=== PATIENT | male | born 1935 | race Caucasian/White ===

== ENCOUNTER 2019-09-05 15:10 | Inpatient (IN) | payer MEDICARE ==
[2019-09-05 16:14] VITALS: BP 157/95
[2019-09-05] MEDS ORDERED: Maalox 30 mL Cup PO PRN (16:15)
[2019-09-05] MEDS ORDERED: Magnesium Hydroxide (MOM) 30 mL UDC PO PRN (16:15)
--- NOTE | 2019-09-06 01:55 | Psychiatric Evaluation ---
DATE OF SERVICE: 09/05/2019 IDENTIFYING DATA: The patient is an 84-year-old male, resident of ____. Information obtained by directly interviewing the patient as well as reviewing the admission papers and they are reliable. JUSTIFICATION OF HOSPITALIZATION: The patient is admitted here on a voluntary basis in view of his acute agitation and psychosis. CHIEF COMPLAINT: "I could not remember anything. I am in pain and needs some pain medication right away before I say anything." HISTORY OF PRESENT ILLNESS: This is the first psychiatric hospitalization to [facility] for this patient who is reported to have been getting easily agitated and has been getting easily paranoid. The patient has been referred over here by Dr. Coates and Dr. Christensen for stabilization. Review of the chart indicates that the patient has been on Risperdal 1 mg twice a day. During the evaluation, the patient is getting easily irritable and angry and is stating that he is in too much of pain. He does not need to talk to me. The patient has paranoid delusions, but denies any command hallucinations. The patient's sleep is noted to be poor. Appetite is also noted to be very poor. PAST PSYCHIATRIC HISTORY: Details are not known. MEDICAL HISTORY: Physical examination is requested by Dr. Coates. SUBSTANCE ABUSE HISTORY: None. PHYSICAL OR SEXUAL ABUSE HISTORY: None. LEGAL PROBLEMS: None at this time. MENTAL STATUS EXAMINATION: The patient is an 84-year-old, looking his stated age, thin built pacing on the unit. The patient has been having difficult time to cope with the stress. Insight and judgment are noted to be still impaired. Impulse control is noted to be limited. Coping skills are noted to be limited. The patient has been having difficult time to cope with the stress. ASSESSMENT: The patient's attention span and concentration are noted to be poor. Short and long-term are noted to be impaired. The patient is not presenting with any suicidal ideation, but the patient is getting easily agitated and aggressive. DIAGNOSES: AXIS I: Psychosis, not otherwise specified. AXIS 1B: Dementia and behavioral change, secondary trait. AXIS II: None. AXIS III: As per Dr. Coates. IMMEDIATE TREATMENT PLAN: The patient is going to be continued on the Risperdal and followed up. ESTIMATED LENGTH OF STAY: 5-7 days. DISCHARGE CRITERIA: When he no longer a threat to self or others and be able to cope up with the stress. [facility]# [id number]
[2019-09-06] MEDS: Multivitamin Tab PO SCH (08:58)
--- NOTE | 2019-09-06 09:10 | History & Physical ---
ADMIT DATE: 09/05/2019 CHIEF COMPLAINT: Agitation. HISTORY OF PRESENT ILLNESS: This is an 84-year-old male who was originally admitted from [facility] Emergency Room. Once medically cleared due to increase in agitation from the [facility], the patient was transferred to [facility] Unit for further mental health management. REVIEW OF SYSTEMS: GENERAL: This is an 84-year-old male. No fever, no weakness. HEAD: No headache. No dizziness. EYES: No eye pain, no blurring vision. NECK: No neck pain, no nuchal rigidity. CHEST: No chest pain or palpitation. PULMONARY: No coughing. No shortness of breath. GASTROINTESTINAL: No abdominal pain, no constipation, no diarrhea. MUSCULOSKELETAL: No joint pain. No muscle pain. SOCIAL HISTORY: The patient lives in a [facility] prior to hospitalization. PSYCHIATRIC HISTORY: Includes dementia. PAST SURGICAL HISTORY: Unremarkable. FAMILY HISTORY: Unremarkable. PAST MEDICAL HISTORY: Includes osteoarthritis. PHYSICAL EXAMINATION: VITAL SIGNS: Temperature 98.5, heart rate 79, blood pressure 119/59, respirations 20, 97% on room air. GENERAL: This is an 84-year-old male that appears as stated in no acute distress. HEENT: Head is atraumatic and normocephalic. Eyes: Bilateral conjunctivae are clear. Bilateral pupils equal, round, reactive. NECK: Supple. No JVD. CARDIOVASCULAR: S1 and S2, without murmur. PULMONARY: Clear to auscultation. GASTROINTESTINAL: Soft and nontender without guarding. Positive bowel sounds. MUSCULOSKELETAL: No clubbing. No cyanosis noted. ASSESSMENT: 1. Dementia. 2. Psychosis. 3. Osteoarthritis. PLAN: We will admit the patient to Psychiatric Unit. We will follow up with the psychiatrist to monitor the patient's condition and behavior. We will put the patient on fall precaution. We will do medication reconciliation accordingly. Treatment plans were discussed with the patient's nurse. Treatment plans were discussed with Dr. Coates. JOB# [id number]
--- NOTE | 2019-09-07 02:16 | Progress Notes ---
DATE: 09/06/2019 PSYCHIATRIC PROGRESS NOTE SUBJECTIVE: Staff was spoken to. The patient is interviewed. Mood is noted to be depressed. Affect is constricted. The patient is acutely confused at this time. The patient is not able to contract for safety. The patient is very intrusive and trying to get out of the bed. The patient is at very high fall risk. The patient needs to be closely monitored. The patient's medication has been reviewed and the Risperdal dose has been decreased to 0.5 mg twice a day and the patient is going to be closely monitored. Staff are informed about the fall risk. ASSESSMENT: The patient is paranoid at the same time and demented. PLAN: To continue the patient with the supportive therapy. I encouraged the patient to verbalize the concerns rather than to act out. JOB# [id number]
[2019-09-07] MEDS: Multivitamin Tab PO SCH (09:58)
--- NOTE | 2019-09-07 16:28 | Internal Medicine Prog Note ---
Internal Medicine Subjective - Subjective Patient is:: awake, verbal, in bed, talking Per staff patient has:: no adverse event, no episodes of fall Internal Medicine Objective - Physical Exam Vitals and I&O: Vital Signs Temp 98.8 F 09/07/19 15:38 Pulse 64 09/07/19 15:38 Resp 17 09/07/19 15:38 BP 126/65 09/07/19 15:38 Pulse Ox 98 09/07/19 15:38 Intake & Output 09/06/19 09/07/19 09/07/19 19:59 06:59 18:59 Intake Total 120 Balance 120 Intake: Oral 120 Other: # Voids 3 # Bowel Movements Active Medications: Current Medications Acetaminophen (Tylenol) 650 mg PO Q4HR PRN PRN Reason: Mild Pain / Temp above 100 Stop: 11/04/19 16:14 Al Hydrox/Mg Hydrox/Simethicone (Maalox) 30 ml PO Q4HR PRN PRN Reason: GI DISTRESS Stop: 11/04/19 16:14 Docusate Sodium (Colace) 100 mg PO BID [facility] Stop: 11/05/19 08:59 Last Admin: 09/07/19 09:58 Dose: 100 mg Hydroxyzine HCl (Atarax) 10 mg PO HS [facility]; Protocol Stop: 11/04/19 20:59 Last Admin: 09/06/19 21:11 Dose: 10 mg Lorazepam (Ativan) 0.5 mg PO Q4HR PRN; Protocol PRN Reason: Agitation Stop: 10/05/19 16:14 Magnesium Hydroxide (Milk Of Magnesia) 30 ml PO HS PRN PRN Reason: Constipation Memantine (Namenda) 10 mg PO BID [facility] Stop: 11/05/19 08:59 Last Admin: 09/07/19 09:58 Dose: 10 mg Multivitamins/Vitamin C (Theragran) 1 tab PO DAILY [facility] Stop: 11/05/19 08:59 Last Admin: 09/07/19 09:58 Dose: 1 tab Risperidone (Risperdal) 0.5 mg PO BID [facility]; Protocol Stop: 11/05/19 16:59 Last Admin: 09/07/19 09:58 Dose: 0.5 mg Zolpidem Tartrate (Ambien) 5 mg PO HS PRN PRN Reason: Insomnia Stop: 11/04/19 16:14 Last Admin: 09/06/19 21:12 Dose: 5 mg General: weak, demented, disheveled HEENT: NC/AT, PERRLA Neck: Supple, No JVD Lungs: other (no acute respiratory distress) Cardiovascular: RRR Abdomen: soft, non-tender, non-distended Neurological: unable to follow command, other (paranoid) Internal Medicine Assmt/Plan - Assessment Assessment: Dementia Psychosis OA Paranoid - Plan Plan: Continue current treatment plan. Monitor Labs. Continue current medications Continue to monitor VS Monitor Diet/Nutritional support. Psych management per Psychiatry. Pain Management. PT/OT prn Safety precaution, Fall precaution, frequent nursing round. Supportive care. Continue collaborating with consulting specialists, case management and nursing team
--- NOTE | 2019-09-07 22:23 | Progress Notes ---
DATE: 09/07/2019 PSYCHIATRIC PROGRESS NOTE SUBJECTIVE: Staff was spoken to. The patient is interviewed. Mood is noted to be depressed. Affect is constricted. The patient's insight and judgment are noted to be still impaired. Impulse control is noted to be poor. The patient has been having difficult time to cope with the stress. The patient is isolative and withdrawn at this time. No side effects to the medications are noted. The patient's Risperdal has been decreased to 0.5 mg twice a day and the patient has been able to tolerate. The patient however has been feeling frustrated and is stating that he is depressed and he gave up everything. ASSESSMENT: The patient is still confused and demented. PLAN: To closely monitor the patient. I encouraged the patient to verbalize the concerns rather than to act out. JOB# [id number]
[2019-09-08] MEDS: Multivitamin Tab PO SCH (09:01)
--- NOTE | 2019-09-08 10:16 | Internal Medicine Prog Note ---
Internal Medicine Subjective - Subjective Service Date: 09/08/19 Patient seen and examined:: with staff Patient is:: awake, verbal, in bed, talking, agitated, confused Patient Complaints of:: other (Hx of OA.) Per staff patient has:: no adverse event, no episodes of fall Internal Medicine Objective - Physical Exam Vitals and I&O: Vital Signs Temp 97.6 F 09/08/19 06:39 Pulse 71 09/08/19 06:39 Resp 18 09/08/19 06:39 BP 104/60 09/08/19 06:39 Pulse Ox 97 09/08/19 06:39 Intake & Output 09/07/19 09/08/19 09/08/19 18:59 06:59 18:59 Intake Total 120 120 Balance 120 120 Intake: Oral 120 120 Other: # Voids 3 3 Active Medications: Current Medications Acetaminophen (Tylenol) 650 mg PO Q4HR PRN PRN Reason: Mild Pain / Temp above 100 Stop: 11/04/19 16:14 Al Hydrox/Mg Hydrox/Simethicone (Maalox) 30 ml PO Q4HR PRN PRN Reason: GI DISTRESS Stop: 11/04/19 16:14 Docusate Sodium (Colace) 100 mg PO BID [facility] Stop: 11/05/19 08:59 Last Admin: 09/08/19 09:00 Dose: 100 mg Hydroxyzine HCl (Atarax) 10 mg PO HS [facility]; Protocol Stop: 11/04/19 20:59 Last Admin: 09/07/19 21:06 Dose: 10 mg Lorazepam (Ativan) 0.5 mg PO Q4HR PRN; Protocol PRN Reason: Agitation Stop: 10/05/19 16:14 Magnesium Hydroxide (Milk Of Magnesia) 30 ml PO HS PRN PRN Reason: Constipation Memantine (Namenda) 10 mg PO BID [facility] Stop: 11/05/19 08:59 Last Admin: 09/08/19 09:01 Dose: 10 mg Multivitamins/Vitamin C (Theragran) 1 tab PO DAILY [facility] Stop: 11/05/19 08:59 Last Admin: 09/08/19 09:01 Dose: 1 tab Risperidone (Risperdal) 0.5 mg PO BID [facility]; Protocol Stop: 11/05/19 16:59 Last Admin: 09/08/19 09:00 Dose: 0.5 mg Zolpidem Tartrate (Ambien) 5 mg PO HS PRN PRN Reason: Insomnia Stop: 11/04/19 16:14 Last Admin: 09/07/19 21:06 Dose: 5 mg Physical Exam: Patient is very agitated and confused, needs monitoring. General: weak, demented, disheveled HEENT: NC/AT, PERRLA Neck: Supple, No JVD Lungs: other (no acute respiratory distress) Cardiovascular: RRR Abdomen: soft, non-tender, non-distended Extremities: pain Neurological: unable to follow command, other (paranoid) Internal Medicine Assmt/Plan - Assessment Assessment: Dementia. Psychosis. Osteoarthritis. - Plan Plan: Continuation of care. Monitor vitals and labs. Continue present meds as directed. Monitor diet/nutritional support. Psyche management per Psych. Pain management. Continue present care management. Nutritional Asmnt/Malnutr-PDOC - Dietary Evaluation Malnutrition Findings (Please click <Entered> for more info): See orders.
--- NOTE | 2019-09-08 23:05 | Progress Notes ---
DATE: 09/08/2019 SUBJECTIVE: Staff was spoken to. The patient is interviewed. Mood is noted to be depressed and the patient is confused. The patient's coping skills are noted to be very poor. The patient has been having difficult time to cope with the stress. No side effects to the medications are noted at this time. The patient is total care. At this time, needs to be redirected. Coping skills are noted to be extremely poor. ASSESSMENT: The patient is still confused and depressed. PLAN: To continue the patient with the supportive therapy and followup. JOB# [id number]
[2019-09-09] MEDS: Multivitamin Tab PO SCH (08:53)
--- NOTE | 2019-09-09 17:03 | Internal Medicine Prog Note ---
Internal Medicine Subjective - Subjective Service Date: 09/09/19 Patient is:: awake, verbal, in bed, talking, agitated, confused Patient Complaints of:: other (Hx of OA.) Per staff patient has:: no adverse event, no episodes of fall Internal Medicine Objective - Physical Exam Vitals and I&O: Vital Signs Temp 98.4 F 09/09/19 14:00 Pulse 67 09/09/19 14:00 Resp 20 09/09/19 14:00 BP 184/77 09/09/19 14:00 Pulse Ox 96 09/09/19 14:00 Intake & Output 09/08/19 09/09/19 09/09/19 18:59 06:59 18:59 Intake Total 850 240 Balance 850 240 Intake: Oral 850 240 Other: # Voids 3 2 # Bowel Movements 0 Active Medications: Current Medications Acetaminophen (Tylenol) 650 mg PO Q4HR PRN PRN Reason: Mild Pain (Scale 1-3) Stop: 11/04/19 16:14 Acetaminophen (Tylenol) 650 mg PO Q4H PRN PRN Reason: TEMP ABOVE 100 Stop: 11/08/19 15:19 Al Hydrox/Mg Hydrox/Simethicone (Maalox) 30 ml PO Q4HR PRN PRN Reason: GI DISTRESS Stop: 11/04/19 16:14 Docusate Sodium (Colace) 100 mg PO BID [facility] Stop: 11/05/19 08:59 Last Admin: 09/09/19 08:53 Dose: 100 mg Hydroxyzine HCl (Atarax) 10 mg PO HS [facility]; Protocol Stop: 11/04/19 20:59 Last Admin: 09/08/19 20:40 Dose: 10 mg Lorazepam (Ativan) 0.5 mg PO Q4HR PRN; Protocol PRN Reason: Agitation Stop: 10/05/19 16:14 Magnesium Hydroxide (Milk Of Magnesia) 30 ml PO HS PRN PRN Reason: Constipation Memantine (Namenda) 10 mg PO BID [facility] Stop: 11/05/19 08:59 Last Admin: 09/09/19 08:53 Dose: 10 mg Multivitamins/Vitamin C (Theragran) 1 tab PO DAILY [facility] Stop: 11/05/19 08:59 Last Admin: 09/09/19 08:53 Dose: 1 tab Risperidone (Risperdal) 0.5 mg PO BID [facility]; Protocol Stop: 11/05/19 16:59 Last Admin: 09/09/19 08:53 Dose: 0.5 mg Zolpidem Tartrate (Ambien) 5 mg PO HS PRN PRN Reason: Insomnia Stop: 11/04/19 16:14 Last Admin: 09/08/19 20:40 Dose: 5 mg General: weak, demented, disheveled HEENT: NC/AT, PERRLA Neck: Supple, No JVD Lungs: other (no acute respiratory distress) Cardiovascular: RRR Abdomen: soft, non-tender, non-distended Extremities: pain Neurological: unable to follow command, other (paranoid) Nutritional Asmnt/Malnutr-PDOC - Dietary Evaluation Malnutrition Findings (Please click <Entered> for more info): Nutritional Asmnt/Malnutrition Start: 09/09/19 13: 09 Text: Status: Complete Freq: Protocol: Document 09/09/19 13:09 CHITO (Rec: 09/09/19 13:12 [email or web address] [id number]) Nutritional Asmnt/Malnutrition Patient General Information Nutritional Screening Moderate Risk Diagnosis Psychosis Pertinent Medical Hx/Surgical Hx Osteoarthritis, Renal Failure (noted with previous facility, not in H&P Report). Subjective Information Pt is a 84-year-old male admitted on 09/05 d/t increased agitation in [facility]. Pt is eating an estimated 80% of meals Per Meal/Nutrition Activity Record . Dietary is currently providing an estimated 1500 kcals and 57 gm Pro, per Pt PO intake this is providing an estimated 1200 kcals and 46gm Pro to meet 71% kcal and 100% Pro needs. Will continue to monitor pt PO intake, nurse to encourage PO intake and provide snacks as appropriate. Will monitor nutrition related labs and reassess needs if necessary once reported. Anthropometrics HT: 58 WT: 135 LB (61.36 kg) BMI: 20.53 (Normal) GI/ Skin Integrity GI: WNL, Soft, Flat, Non- tender BM: 09/07 x1 I/O: 1090/Not Noted Skin: WNL, Intact Wesley: 21 Diet Order: Renal Estimated Energy Needs: (Renal Failure, CBW) 1700-1850kcals (28-30 kcals/kg ) 46-50g Pro (0.75-0.8 g/kg) 2718-4610 ml (28-30 ml/kg) Current Diet Order/ Nutrition Support Renal Pertinent Medications Maalox (PRN), Colace, MOM (PRN ), Theragran Pertinent Labs Labs ordered 09/05, not reported yet. Nutritional Hx/Data Height 5 ft 8 in Height (Calculated Centimeters) 172.7 Current Weight (lbs) 135 lb Weight (Calculated Kilograms) 61.2 Weight (Calculated Grams) 89064.0 [place] Body Weight 154 LB (70 kg) % [place] Body Weight 88 Body Mass Index (BMI) 20.5 Weight Status Approriate GI Symptoms Last BM 09/07 x1 Skin Integrity/Comment: Skin: WNL, Intact Wesley: 21 Current %PO Good (75-100%) Estimated Nutritional Goals BEE in Kcals: Using Current wt Calories/Kcals/Kg 28-30 Kcals Calculated 6701-1684 Protein: Using Current wt Protein g/k.75-0.8 Protein Calculated 46-50 Fluid: ml 1173-6779 ml (28-30 ml/kg) Nutritional Problem 1. Problem Problem Decreased nutrient needs ( protein) Etiology r/t decreased renal function Signs/Symptoms: aeb reported Hx renal failure from pt previous facility. Malnutrition Related to Morbid Obesity Malnutrition related to morbid obesity No Intervention/Recommendation Comments Continue with renal diet as ordered. Expected Outcomes/Goals Expected Outcomes/Goals 1. PO intake to meet 75% of nutritional needs. 2. Monitor PO intake, wt, nutrition related labs, and skin integrity. 3. F/U as low risk in 7-10 days, 09/16-09/19
--- NOTE | 2019-09-09 20:14 | Progress Notes ---
DATE: 09/09/2019 PSYCHIATRIC PROGRESS NOTE SUBJECTIVE: Staff was spoken to. The patient is interviewed. Mood is noted to be depressed. Affect is constricted. The patient is isolative and withdrawn. The patient is confused and has been going into different rooms. The patient needs to be redirected. No side effects to the medications are noted at this time. ASSESSMENT: The patient is still depressed. PLAN: To continue the patient with the supportive therapy and followup. JOB# [id number]
[2019-09-10] MEDS: Multivitamin Tab PO SCH (08:59)
--- NOTE | 2019-09-10 11:41 | Internal Medicine Prog Note ---
Internal Medicine Subjective - Subjective Service Date: 09/10/19 Patient seen and examined:: with staff Patient is:: awake, verbal, in bed, talking, agitated, confused Patient Complaints of:: other (Hx of OA.) Per staff patient has:: no adverse event, no episodes of fall Internal Medicine Objective - Physical Exam Vitals and I&O: Vital Signs Temp 97.0 F 09/10/19 06:03 Pulse 76 09/10/19 06:03 Resp 18 09/10/19 06:03 BP 161/77 09/10/19 06:03 Pulse Ox 98 09/10/19 06:03 Intake & Output 09/09/19 09/10/19 09/10/19 18:59 06:59 18:59 Intake Total 700 180 Balance 700 180 Intake: Oral 700 180 Other: # Voids 3 1 # Bowel Movements 0 0 Active Medications: Current Medications Acetaminophen (Tylenol) 650 mg PO Q4HR PRN PRN Reason: Mild Pain (Scale 1-3) Stop: 11/04/19 16:14 Acetaminophen (Tylenol) 650 mg PO Q4H PRN PRN Reason: TEMP ABOVE 100 Stop: 11/08/19 15:19 Al Hydrox/Mg Hydrox/Simethicone (Maalox) 30 ml PO Q4HR PRN PRN Reason: GI DISTRESS Stop: 11/04/19 16:14 Docusate Sodium (Colace) 100 mg PO BID [facility] Stop: 11/05/19 08:59 Last Admin: 09/10/19 08:59 Dose: 100 mg Hydroxyzine HCl (Atarax) 10 mg PO HS [facility]; Protocol Stop: 11/04/19 20:59 Last Admin: 09/09/19 20:31 Dose: 10 mg Lorazepam (Ativan) 0.5 mg PO Q4HR PRN; Protocol PRN Reason: Agitation Stop: 10/05/19 16:14 Last Admin: 09/10/19 08:59 Dose: 0.5 mg Magnesium Hydroxide (Milk Of Magnesia) 30 ml PO HS PRN PRN Reason: Constipation Memantine (Namenda) 10 mg PO BID [facility] Stop: 11/05/19 08:59 Last Admin: 09/10/19 08:59 Dose: 10 mg Multivitamins/Vitamin C (Theragran) 1 tab PO DAILY [facility] Stop: 11/05/19 08:59 Last Admin: 09/10/19 08:59 Dose: 1 tab Risperidone (Risperdal) 0.5 mg PO BID [facility]; Protocol Stop: 11/05/19 16:59 Last Admin: 09/10/19 08:59 Dose: 0.5 mg Zolpidem Tartrate (Ambien) 5 mg PO HS PRN PRN Reason: Insomnia Stop: 11/04/19 16:14 Last Admin: 09/09/19 20:31 Dose: 5 mg Physical Exam: Patient is depressed mood, remains isolated and withdrawn. General: weak, demented, disheveled HEENT: NC/AT, PERRLA Neck: Supple, No JVD Lungs: other (no acute respiratory distress) Cardiovascular: RRR Abdomen: soft, non-tender, non-distended Extremities: pain Neurological: no change, unable to follow command, other (paranoid) Internal Medicine Assmt/Plan - Assessment Assessment: Dementia. Psychosis. Osteoarthritis. - Plan Plan: Continuation of care. Monitor vitals and labs. Continue present meds as directed. Monitor diet/nutritional support. Psyche management per Psych. Pain management. Continue present care management. Nutritional Asmnt/Malnutr-PDOC - Dietary Evaluation Malnutrition Findings (Please click <Entered> for more info): Nutritional Asmnt/Malnutrition Start: 09/09/19 13: 09 Text: Status: Complete Freq: Protocol: Document 09/09/19 13:09 CHITO (Rec: 09/09/19 13:12 CHITO [id number]) Nutritional Asmnt/Malnutrition Patient General Information Nutritional Screening Moderate Risk Diagnosis Psychosis Pertinent Medical Hx/Surgical Hx Osteoarthritis, Renal Failure (noted with previous facility, not in H&P Report). Subjective Information Pt is a 84-year-old male admitted on 09/05 d/t increased agitation in [facility] care [facility]. Pt is eating an estimated 80% of meals Per Meal/Nutrition Activity Record . Dietary is currently providing an estimated 1500 kcals and 57 gm Pro, per Pt PO intake this is providing an estimated 1200 kcals and 46gm Pro to meet 71% kcal and 100% Pro needs. Will continue to monitor pt PO intake, nurse to encourage PO intake and provide snacks as appropriate. Will monitor nutrition related labs and reassess needs if necessary once reported. Anthropometrics HT: 58 WT: 135 LB (61.36 kg) BMI: 20.53 (Normal) GI/ Skin Integrity GI: WNL, Soft, Flat, Non- tender BM: 09/07 x1 I/O: 1090/Not Noted Skin: WNL, Intact Wesley: 21 Diet Order: Renal Estimated Energy Needs: (Renal Failure, CBW) 1700-1850kcals (28-30 kcals/kg ) 46-50g Pro (0.75-0.8 g/kg) 9806-7390 ml (28-30 ml/kg) Current Diet Order/ Nutrition Support Renal Pertinent Medications Maalox (PRN), Colace, MOM (PRN ), Theragran Pertinent Labs Labs ordered 09/05, not reported yet. Nutritional Hx/Data Height 1.73 m Height (Calculated Centimeters) 172.7 Current Weight (lbs) 61.235 kg Weight (Calculated Kilograms) 61.2 Weight (Calculated Grams) 08993.0 [place] Body Weight 154 LB (70 kg) % [place] Body Weight 88 Body Mass Index (BMI) 20.5 Weight Status Approriate GI Symptoms Last BM 09/07 x1 Skin Integrity/Comment: Skin: WNL, Intact Wesley: 21 Current %PO Good (75-100%) Estimated Nutritional Goals BEE in Kcals: Using Current wt Calories/Kcals/Kg 28-30 Kcals Calculated 9159-9210 Protein: Using Current wt Protein g/k.75-0.8 Protein Calculated 46-50 Fluid: ml 2425-6703 ml (28-30 ml/kg) Nutritional Problem 1. Problem Problem Decreased nutrient needs ( protein) Etiology r/t decreased renal function Signs/Symptoms: aeb reported Hx renal failure from pt previous facility. Malnutrition Related to Morbid Obesity Malnutrition related to morbid obesity No Intervention/Recommendation Comments Continue with renal diet as ordered. Expected Outcomes/Goals Expected Outcomes/Goals 1. PO intake to meet 75% of nutritional needs. 2. Monitor PO intake, wt, nutrition related labs, and skin integrity. 3. F/U as low risk in 7-10 days, 09/16-09/19
--- NOTE | 2019-09-10 23:10 | Progress Notes ---
DATE: 09/10/2019 SUBJECTIVE: Staff was spoken to. The patient is interviewed. Mood is noted to be depressed. The patient is very isolative, withdrawn and is noted to be very drowsy and hence it is decided to hold off the psych medications and then get a comprehensive metabolic panel. The patient is going to be closely monitored at this time. ASSESSMENT: The patient is still confused and is very drowsy. PLAN: To continue the patient with the supportive therapy and hold all psychotropic medications. JOB# [id number]
== END 2019-09-10 20:30 | disposition short-term general hospital (02) | DRG 885 ==
LOC: GERO 15:10
PROVIDERS: ADMIT Psychiatry & Neurology Psychiatry; ATTEND Psychiatry & Neurology Psychiatry
DX: F29 Unspecified psychosis not due to a substance or known physiological condition (principal); F03.91 Unspecified dementia, unspecified severity, with behavioral disturbance; M19.90 Unspecified osteoarthritis, unspecified site
CPT/HCPCS: 83036-90

== ENCOUNTER 2019-09-16 17:48 | Inpatient (IN) | payer MEDICARE ==
[2019-09-16 22:45] VITALS: BP 149/58
[2019-09-16] MEDS ORDERED: Maalox 30 mL Cup PO PRN (22:46)
[2019-09-16] MEDS ORDERED: Magnesium Hydroxide (MOM) 30 mL UDC PO PRN (22:59)
--- NOTE | 2019-09-17 07:43 | Psychiatric Evaluation ---
DATE OF SERVICE: 09/16/2019 PSYCHIATRIC INTIAL EVALUATION AND MENTAL STATUS EXAM AGE: 84. SEX: Male. PHYSICIAN: Dr. Gillespie. CHIEF COMPLAINT: 5150 hold for grave disability. HISTORY OF PRESENT ILLNESS: The patient is an 84-year-old male who was living in a [facility] living in [place]. The patient was transferred to [facility] because of confusion and because of forgetfulness and increased aggressive behavior was striking out behavior and aggression towards staff. The patient also has been having short temper and severe mood swings. Also, was not cooperative with the staff. In [facility], patient continued to exhibit same behavior and patient was given Seroquel in a dose adjusted to 25 mg in the morning and 50 mg at bedtime. The patient was transferred to [facility]. PAST PSYCHIATRIC HISTORY: The patient has history of dementia and psychosis. PAST MEDICAL HISTORY: The patient has moderate malnutrition as well as degenerative joint disease, and acute renal failure and osteoarthritis. SOCIAL HISTORY: The patient was living in [facility] in [place]. No known alcohol or drug use. ALLERGIES: No known allergies. MENTAL STATUS EXAMINATION: The patient appears his stated age. Sedated. Anxious. Thought processes are with poverty of speech. The patient did not answer questions regarding hallucinations or delusions or regarding suicide or homicide. The patient is alert, but slightly sedated and seems to be disoriented to time, place, person and situation. Impaired immediate, recent and remote memories. Poor insight and judgment. ASSESSMENT: PRIMARY DIAGNOSIS: Unspecified psychosis. SECONDARY DIAGNOSIS: Dementia, moderate to severe, with psychotic features and behavioral disturbances. MEDICAL DIAGNOSES: Degenerative joint disease. Acute renal failure. Osteoarthritis. Moderate malnutrition. TREATMENT PLAN: The patient currently seems to be sedated with the increased dose of the Seroquel. We will decrease Seroquel to 12.5 mg in the morning and 37.5 mg at bedtime. Also, we will monitor behavior closely. ESTIMATED LENGTH OF STAY: 5-7 days. PATIENT'S STRENGTHS AND WEAKNESSES: The patient's strength is that seems to be in relatively fair health with his age. Weaknesses is his poor impulse control and ineffective coping. AFTER DISCHARGE PLAN: The patient might need rehabilitation and outpatient treatment and followup, will continue as an outpatient. JOB# [id number]
[2019-09-17] MEDS: Multivitamin w/ Minerals Tab PO SCH (10:00)
--- NOTE | 2019-09-17 11:24 | History and Physical ---
History of Present Illness - HPI Chief Complaint: 84 y/o male patient was transferred from [facility] for 5150 Hold for Grave disability. HPI: 84 y/o male patient was admitted at [facility] for 5150 Hold for Grave disability. Patient has history of Psychosis, Dementia, Degenerative joint disease, Acute renal failure and Osteoarthritis. Patient was transferred from [facility] where she was recently admitted due to Forgetfulness, Confusion and Increased aggressive behavior, striking out behavior and aggression towards others. Patient's behavior worsened and was transferred here for further care. Patient had a Psych consult and a complete workup was done. Patient was put on 5150 Hold. Patient was diagnosed with Psychosis, Dementia moderate to severe, History of Degenerative joint disease, History of Acute renal failure and History of Osteoarthritis. I will follow, treat and monitor patient. Patient will continue current treatment plan as ordered. Vital Signs: Last Vital Signs Temp 98.1 F 09/16/19 22:38 Pulse 76 09/16/19 22:38 Resp 20 09/16/19 22:38 BP 149/58 09/16/19 22:45 Pulse Ox 99 09/16/19 22:38 Past Medical History Cardiovascular: Report: No Pertinent Hx Pulmonary: Report: No Pertinent Hx W[employer]: Report: Dementia GI: Report: No Pertinent Hx Psych: Report: Anxiety Musculoskeletal: Report: No Pertinent Hx Rheumatologic: Report: No pertinent Hx Infectious Disease: Report: No Pertinent Hx Renal/: Report: No Pertinent Hx Endocrine: Report: No Pertinent Hx Dermatology: Report: No Pertinent Hx - Past Surgical History Past Surgical History: No pertinent Hx Family Medical History - Family Member Mother History Unknown: Yes Social History Smoke: No Alcohol: None Drugs: None Lives: Care Home Domestic Violence: Negative Health Maintenance Health Maintenance: Other (Please see chart.) - Medications Home Medications: Home Medication Medication Instructions Recorded Type Melatonin 5 mg PO HS 09/05/19 History Memantine [Namenda] 10 mg PO BID 09/05/19 History hydrOXYzine [Atarax*] 10 mg PO HS 09/05/19 History risperiDONE [Risperdal] 1 mg PO BID 09/05/19 History Acetaminophen [Tylenol] 650 mg PO Q4H PRN tab 09/10/19 Rx Al Hyd/Mg Hyd/Simethicone [Maalox] 30 ml PO Q4HR PRN udc 09/10/19 Rx Docusate Sodium [Colace] 100 mg PO BID cap 09/10/19 Rx Other Medications: Please see medication reconciliation sheet. - Allergies Allergies/Adverse Reactions: Allergies Allergy/AdvReac Type Severity Reaction Status Date / Time No Known Allergies Allergy Verified 09/05/19 16:00 Review of Systems - Review of Systems Review of Systems: 84 y/o male patient remains very aggressive and having mood swings, needs close monitoring. Constitutional: Report: No Significant Eyes: Report: No Significant ENT: Report: No Significant Respiratory: Report: No Significant Cardiovascular: Report: No Significant Gastrointestinal: Report: No Significant Genitourinary: Report: No Significant Musculoskeletal: Report: No Significant Skin: Report: No Significant Neurological: Report: Confusion Physical Exam - Physical Exam HEENT: Report: Ears Nose Throat within normal limits Neck: Report: Within normal limits Cardiovascular Systems: Report: +s1/s2 noted, Regular, Rate and Rhythm Respiratory: Report: Breath Sounds are within normal limits Abdomen: Report: Non-tender to palpation Back: Report: Inspection of back is within normal limits. Extremities: Report: Non-tender to palpation. Skin: Report: Color of skin is within normal limits Neuro/Psych: Report: Disoriented to name time or place, Other (Irritable mood.) - Lab Results All Lab Results last 24 hours: See orders. - Assessment Assessment: 5150 Hold. Psychosis. Anxiety. Dementia moderate to severe. History of Degenerative joint disease. History of Acute renal failure. History of Osteoarthritis. - Plan Plan: Continuation of care. Monitor vitals and labs. Monitor diet/nutritional support. Continue present meds as directed. Supportive care. Pain management. Psych management as per Psych. Continue current treatment plan as ordered.
--- NOTE | 2019-09-18 08:37 | Progress Notes ---
DATE: 09/18/2019 PSYCHIATRIC PROGRESS NOTE SUBJECTIVE: Chart was reviewed and the patient interviewed. Also discussed the patient's condition with the staff and reviewed records and labs. The patient is still extremely agitated and is still in irritable and angry mood. The patient also is still restless and is easily agitated and wants to be left alone. The patient seems to be less sedated. Also, the patient wants to be left alone. No major behavioral problems. Also, the patient has no side effects since I decreased his Seroquel, but he is still confused. ASSESSMENT: The patient is still agitated and needs close monitoring. TREATMENT PLAN: We will continue to monitor his behavior and his condition closely. Also, we will continue Seroquel since I decreased it yesterday at the same dose. Also, continue to monitor his behavior and his condition closely. JOB# [id number]
[2019-09-18] MEDS: Multivitamin w/ Minerals Tab PO SCH (09:35)
--- NOTE | 2019-09-18 17:08 | Internal Medicine Prog Note ---
Internal Medicine Subjective - Subjective Service Date: 09/18/19 Patient seen and examined:: with staff Patient is:: awake Per staff patient has:: tolerating meds Internal Medicine Objective - Physical Exam Vitals and I&O: Vital Signs Temp 97.6 F 09/18/19 14:00 Pulse 71 09/18/19 14:00 Resp 20 09/18/19 14:00 BP 149/89 09/18/19 14:00 Pulse Ox 97 09/18/19 14:00 Intake & Output 09/17/19 09/18/19 09/18/19 18:59 06:59 18:59 Intake Total 700 120 Balance 700 120 Intake: Oral 700 120 Other: # Voids 3 1 # Bowel Movements 1 1 Active Medications: Current Medications Acetaminophen (Tylenol) 650 mg PO Q4H PRN PRN Reason: Mild Pain / Temp above 100 Stop: 11/15/19 22:45 Al Hydrox/Mg Hydrox/Simethicone (Maalox) 30 ml PO Q4H PRN PRN Reason: GI DISTRESS Stop: 11/15/19 22:45 Docusate Sodium (Colace) 100 mg PO BID [facility] Stop: 11/16/19 08:59 Last Admin: 09/18/19 16:35 Dose: 100 mg Lorazepam (Ativan) 0.5 mg PO Q4H PRN; Protocol PRN Reason: Anxiety Stop: 11/15/19 22:14 Magnesium Hydroxide (Milk Of Magnesia) 30 ml PO HS PRN PRN Reason: Constipation Stop: 11/15/19 22:58 Memantine (Namenda) 10 mg PO BID [facility] Stop: 11/16/19 08:59 Last Admin: 09/18/19 16:35 Dose: 10 mg Quetiapine Fumarate (Seroquel) 12.5 mg PO DAILY [facility]; Protocol Stop: 11/16/19 08:59 Last Admin: 09/18/19 09:35 Dose: 12.5 mg Quetiapine Fumarate (Seroquel) 37.5 mg PO HS [facility]; Protocol Stop: 11/16/19 20:59 Last Admin: 09/17/19 20:29 Dose: 37.5 mg Zolpidem Tartrate (Ambien) 5 mg PO HS PRN PRN Reason: Insomnia Stop: 11/15/19 22:45 General: alert HEENT: NC/AT, PERRLA Neck: Supple Lungs: CTAB Cardiovascular: Normal S1, Normal S2, without murmur Abdomen: soft, non-tender, non-distended, positive bowel sound Neurological: alert Internal Medicine Assmt/Plan - Assessment Assessment: 5150 Hold. Psychosis. Anxiety. Dementia moderate to severe. History of Degenerative joint disease. History of Acute renal failure. History of Osteoarthritis. - Plan Plan: Continuation of care. Monitor vitals and labs. Monitor diet/nutritional support. Continue present meds as directed. Supportive care. Pain management. Psych management as per Psych. Continue current treatment plan as ordered.
[2019-09-19] MEDS: Multivitamin w/ Minerals Tab PO SCH (09:04)
--- NOTE | 2019-09-19 15:37 | Internal Medicine Prog Note ---
Internal Medicine Subjective - Subjective Service Date: 09/19/19 Patient seen and examined:: with staff Patient is:: awake, verbal, agitated, confused Patient Complaints of:: other (Dementia.) Per staff patient has:: no adverse event, no episodes of fall, tolerating meds Internal Medicine Objective - Physical Exam Vitals and I&O: Vital Signs Temp 97.5 F 09/19/19 14:00 Pulse 60 09/19/19 14:00 Resp 18 09/19/19 14:00 BP 136/64 09/19/19 14:00 Pulse Ox 97 09/19/19 14:00 Intake & Output 09/18/19 09/19/19 09/19/19 18:59 06:59 18:59 Intake Total 1200 240 Balance 1200 240 Intake: Oral 1200 240 Other: # Voids 3 2 # Bowel Movements 0 0 Stool Characteristics Soft Active Medications: Current Medications Acetaminophen (Tylenol) 650 mg PO Q4H PRN PRN Reason: Mild Pain / Temp above 100 Stop: 11/15/19 22:45 Al Hydrox/Mg Hydrox/Simethicone (Maalox) 30 ml PO Q4H PRN PRN Reason: GI DISTRESS Stop: 11/15/19 22:45 Docusate Sodium (Colace) 100 mg PO BID [facility] Stop: 11/16/19 08:59 Last Admin: 09/19/19 09:04 Dose: 100 mg Lorazepam (Ativan) 0.5 mg PO Q4H PRN; Protocol PRN Reason: Anxiety Stop: 11/15/19 22:14 Magnesium Hydroxide (Milk Of Magnesia) 30 ml PO HS PRN PRN Reason: Constipation Stop: 11/15/19 22:58 Memantine (Namenda) 10 mg PO BID [facility] Stop: 11/16/19 08:59 Last Admin: 09/19/19 09:04 Dose: 10 mg Quetiapine Fumarate (Seroquel) 12.5 mg PO DAILY [facility]; Protocol Stop: 11/16/19 08:59 Last Admin: 09/19/19 09:04 Dose: 12.5 mg Quetiapine Fumarate (Seroquel) 37.5 mg PO HS [facility]; Protocol Stop: 11/16/19 20:59 Last Admin: 09/18/19 21:13 Dose: 37.5 mg Zolpidem Tartrate (Ambien) 5 mg PO HS PRN PRN Reason: Insomnia Stop: 11/15/19 22:45 Physical Exam: 84 y/o male patient is very irritable and aggressive, continues to need monitoring. General: alert HEENT: NC/AT, PERRLA Neck: Supple Lungs: CTAB Cardiovascular: Normal S1, Normal S2, without murmur Abdomen: soft, non-tender, non-distended, positive bowel sound Extremities: clear Neurological: alert Internal Medicine Assmt/Plan - Assessment Assessment: 5150 Hold. Psychosis. Anxiety. Dementia moderate to severe. History of Degenerative joint disease. History of Acute renal failure. History of Osteoarthritis. - Plan Plan: Continuation of care. Monitor vitals and labs. Monitor diet/nutritional support. Continue present meds as directed. Supportive care. Pain management. Psych management as per Psych. Continue current treatment plan as ordered. Nutritional Asmnt/Malnutr-PDOC - Dietary Evaluation Malnutrition Findings (Please click <Entered> for more info): see orders.
[2019-09-20] MEDS: Multivitamin w/ Minerals Tab PO SCH (09:00)
--- NOTE | 2019-09-20 16:32 | Internal Medicine Prog Note ---
Internal Medicine Subjective - Subjective Service Date: 09/20/19 Patient seen and examined:: with staff Patient is:: awake, verbal, agitated, confused Patient Complaints of:: other (Dementia.) Per staff patient has:: no adverse event, no episodes of fall, tolerating meds Internal Medicine Objective - Physical Exam Vitals and I&O: Vital Signs Temp 98.0 F 09/20/19 14:00 Pulse 72 09/20/19 14:00 Resp 18 09/20/19 14:00 BP 136/66 09/20/19 14:00 Pulse Ox 97 09/20/19 14:00 Intake & Output 09/19/19 09/20/19 09/20/19 18:59 06:59 18:59 Intake Total 800 360 Output Total 1 Balance 800 359 Intake: Oral 800 360 Output: Urine/Stool Mix 1 Other: # Voids 3 1 # Bowel Movements 0 Stool Characteristics Soft Active Medications: Current Medications Acetaminophen (Tylenol) 650 mg PO Q4H PRN PRN Reason: Mild Pain / Temp above 100 Stop: 11/15/19 22:45 Al Hydrox/Mg Hydrox/Simethicone (Maalox) 30 ml PO Q4H PRN PRN Reason: GI DISTRESS Stop: 11/15/19 22:45 Docusate Sodium (Colace) 100 mg PO BID [facility] Stop: 11/16/19 08:59 Last Admin: 09/20/19 09:00 Dose: 100 mg Lorazepam (Ativan) 0.5 mg PO Q4H PRN; Protocol PRN Reason: Anxiety Stop: 11/15/19 22:14 Magnesium Hydroxide (Milk Of Magnesia) 30 ml PO HS PRN PRN Reason: Constipation Stop: 11/15/19 22:58 Memantine (Namenda) 10 mg PO BID [facility] Stop: 11/16/19 08:59 Last Admin: 09/20/19 09:00 Dose: 10 mg Quetiapine Fumarate (Seroquel) 12.5 mg PO DAILY [facility]; Protocol Stop: 11/16/19 08:59 Last Admin: 09/20/19 09:00 Dose: 12.5 mg Quetiapine Fumarate (Seroquel) 37.5 mg PO HS [facility]; Protocol Stop: 11/16/19 20:59 Last Admin: 09/19/19 20:12 Dose: 37.5 mg Zolpidem Tartrate (Ambien) 5 mg PO HS PRN PRN Reason: Insomnia Stop: 11/15/19 22:45 Physical Exam: 84 y/o male patient is agitated and easily frustrated, continues to need monitoring. General: alert HEENT: NC/AT, PERRLA Neck: Supple Lungs: CTAB Cardiovascular: Normal S1, Normal S2, without murmur Abdomen: soft, non-tender, non-distended, positive bowel sound Extremities: clear Neurological: alert Internal Medicine Assmt/Plan - Assessment Assessment: 5150 Hold. Psychosis. Anxiety. Dementia moderate to severe. History of Degenerative joint disease. History of Acute renal failure. History of Osteoarthritis. - Plan Plan: Continuation of care. Monitor vitals and labs. Monitor diet/nutritional support. Continue present meds as directed. Supportive care. Pain management. Psych management as per Psych. Continue current treatment plan as ordered. Nutritional Asmnt/Malnutr-PDOC - Dietary Evaluation Malnutrition Findings (Please click <Entered> for more info): see orders.
--- NOTE | 2019-09-20 18:27 | Progress Notes ---
DATE: 09/19/2019 DATE OF SERVICE: 09/19/2019 SUBJECTIVE: Chart was reviewed and the patient interviewed. Also discussed the patient's condition with the staff and reviewed records and labs. The patient is still in angry and in irritable mood. The patient also is still easily agitated and restless. The patient also is interacting minimally with others. Otherwise, the patient is compliant with taking medications with no side effects of medications. ASSESSMENT: The patient is still confused and agitated. TREATMENT PLAN: Continue to monitor his behavior and his condition closely. Also, continue to work on his irritability and impulsivity. Also, continue Seroquel in a dose of 12.5 mg in the morning and 37.5 mg at bedtime and continue to follow up closely. JOB# [id number]
--- NOTE | 2019-09-20 18:56 | Progress Notes ---
DATE: 09/20/2019 DATE OF SERVICE: 09/20/2016 SUBJECTIVE: The patient is confused and forgetful. The patient also is still guarded and forgetful and needs redirections. The patient also still anxious. Otherwise, the patient is compliant with taking his medications with no side effects of medications. ASSESSMENT: The patient is still confused and forgetful and needs close monitoring because of his agitation. TREATMENT PLAN: Continue to monitor behavior and condition closely and continue adjusting psychotropic medications and work on behavioral modification. JOB# [id number]
[2019-09-21] MEDS: Multivitamin w/ Minerals Tab PO SCH (10:22)
--- NOTE | 2019-09-21 16:44 | Internal Medicine Prog Note ---
Internal Medicine Subjective - Subjective Patient is:: awake, verbal, in bed, agitated, confused Patient Complaints of:: other (Dementia.) Per staff patient has:: no adverse event, no episodes of fall, tolerating meds Internal Medicine Objective - Physical Exam Vitals and I&O: Vital Signs Temp 97.0 F 09/21/19 14:00 Pulse 63 09/21/19 14:00 Resp 18 09/21/19 14:00 BP 139/70 09/21/19 14:00 Pulse Ox 96 09/21/19 14:00 Intake & Output 09/20/19 09/21/19 09/21/19 18:59 06:59 18:59 Intake Total 800 120 Balance 800 120 Intake: Oral 800 120 Other: # Voids 3 3 # Bowel Movements 1 Active Medications: Current Medications Acetaminophen (Tylenol) 650 mg PO Q4H PRN PRN Reason: Mild Pain / Temp above 100 Stop: 11/15/19 22:45 Al Hydrox/Mg Hydrox/Simethicone (Maalox) 30 ml PO Q4H PRN PRN Reason: GI DISTRESS Stop: 11/15/19 22:45 Docusate Sodium (Colace) 100 mg PO BID [facility] Stop: 11/16/19 08:59 Last Admin: 09/21/19 10:00 Dose: 100 mg Lorazepam (Ativan) 0.5 mg PO Q4H PRN; Protocol PRN Reason: Anxiety Stop: 11/15/19 22:14 Magnesium Hydroxide (Milk Of Magnesia) 30 ml PO HS PRN PRN Reason: Constipation Stop: 11/15/19 22:58 Memantine (Namenda) 10 mg PO BID [facility] Stop: 11/16/19 08:59 Last Admin: 09/21/19 10:24 Dose: 10 mg Quetiapine Fumarate (Seroquel) 12.5 mg PO DAILY [facility]; Protocol Stop: 11/16/19 08:59 Last Admin: 09/21/19 10:00 Dose: 12.5 mg Quetiapine Fumarate (Seroquel) 37.5 mg PO HS [facility]; Protocol Stop: 11/16/19 20:59 Last Admin: 09/20/19 21:31 Dose: 37.5 mg Zolpidem Tartrate (Ambien) 5 mg PO HS PRN PRN Reason: Insomnia Stop: 11/15/19 22:45 Last Admin: 09/20/19 21:31 Dose: 5 mg General: alert, NAD HEENT: NC/AT, PERRLA Neck: Supple Lungs: other (no acute respiratory distress) Cardiovascular: RRR Abdomen: soft, non-tender, non-distended, positive bowel sound Extremities: clear Neurological: alert Internal Medicine Assmt/Plan - Assessment Assessment: 5150 Hold. Psychosis. Anxiety. Dementia moderate to severe. History of Degenerative joint disease. History of Acute renal failure. History of Osteoarthritis. - Plan Plan: Continue current treatment plan. Monitor Labs. Continue current medications Continue to monitor VS Monitor Diet/Nutritional support. Psych management per Psychiatry. Pain Management. PT/OT prnSafety precaution, Fall precaution, frequent nursing round. Supportive care. Continue collaborating with consulting specialists, case management and nursing team
--- NOTE | 2019-09-21 19:02 | Progress Notes ---
DATE: 09/21/2019 SUBJECTIVE: Chart was reviewed and the patient interviewed and discussed the patient's condition with the staff and reviewed records and labs. The patient is still forgetful and guarded. The patient also is still confused. The patient also is still easily irritable and at times. Otherwise, the patient is compliant with taking his medications with no side effects of medications. ASSESSMENT: The patient is still confused and forgetful and needs close monitoring. TREATMENT PLAN: Continue to monitor behavior. Also, continue working on his irritability and confusion and continue to follow up. JOB# [id number]
[2019-09-22] MEDS: Multivitamin w/ Minerals Tab PO SCH (08:55)
--- NOTE | 2019-09-22 15:02 | Internal Medicine Prog Note ---
Internal Medicine Subjective - Subjective Service Date: 09/22/19 Patient seen and examined:: with staff Patient is:: awake, verbal, in bed, agitated, confused Patient Complaints of:: other (Dementia.) Per staff patient has:: no adverse event, no episodes of fall, tolerating meds Internal Medicine Objective - Physical Exam Vitals and I&O: Vital Signs Temp 97.3 F 09/22/19 08:00 Pulse 62 09/22/19 08:00 Resp 19 09/22/19 08:00 BP 150/61 09/22/19 06:00 Pulse Ox 96 09/22/19 08:00 Intake & Output 09/21/19 09/22/19 09/22/19 18:59 06:59 18:59 Intake Total 1000 300 Balance 1000 300 Intake: Oral 1000 300 Other: # Voids 1 # Bowel Movements 0 Active Medications: Current Medications Acetaminophen (Tylenol) 650 mg PO Q4H PRN PRN Reason: Mild Pain (Scale 1-3) Stop: 11/15/19 22:45 Acetaminophen (Tylenol) 650 mg PO Q4H PRN PRN Reason: TEMP ABOVE 100 Stop: 11/21/19 14:57 Al Hydrox/Mg Hydrox/Simethicone (Maalox) 30 ml PO Q4H PRN PRN Reason: GI DISTRESS Stop: 11/15/19 22:45 Docusate Sodium (Colace) 100 mg PO BID [facility] Stop: 11/16/19 08:59 Last Admin: 09/22/19 08:55 Dose: 100 mg Lorazepam (Ativan) 0.5 mg PO Q4H PRN; Protocol PRN Reason: Anxiety Stop: 11/15/19 22:14 Last Admin: 09/22/19 08:56 Dose: 0.5 mg Magnesium Hydroxide (Milk Of Magnesia) 30 ml PO HS PRN PRN Reason: Constipation Stop: 11/15/19 22:58 Memantine (Namenda) 10 mg PO BID [facility] Stop: 11/16/19 08:59 Last Admin: 09/22/19 08:56 Dose: 10 mg Quetiapine Fumarate (Seroquel) 12.5 mg PO DAILY [facility]; Protocol Stop: 11/16/19 08:59 Last Admin: 09/22/19 08:57 Dose: 12.5 mg Quetiapine Fumarate (Seroquel) 37.5 mg PO HS [facility]; Protocol Stop: 11/16/19 20:59 Last Admin: 09/21/19 22:00 Dose: 37.5 mg Zolpidem Tartrate (Ambien) 5 mg PO HS PRN PRN Reason: Insomnia Stop: 11/15/19 22:45 Last Admin: 09/20/19 21:31 Dose: 5 mg Physical Exam: 84 y/o male patient has increased memory loss and is very confused, continue monitoring closely. General: alert, NAD HEENT: NC/AT, PERRLA Neck: Supple Lungs: other (no acute respiratory distress) Cardiovascular: RRR Abdomen: soft, non-tender, non-distended, positive bowel sound Extremities: clear Neurological: alert Internal Medicine Assmt/Plan - Assessment Assessment: 5150 Hold. Psychosis. Anxiety. Dementia moderate to severe. History of Degenerative joint disease. History of Acute renal failure. History of Osteoarthritis. - Plan Plan: Continuation of care. Monitor vitals and labs. Monitor diet/nutritional support. Continue present meds as directed. Supportive care. Pain management. Psych management as per Psych. Continue current treatment plan as ordered. Nutritional Asmnt/Malnutr-PDOC - Dietary Evaluation Malnutrition Findings (Please click <Entered> for more info): see orders.
[2019-09-23] MEDS: Multivitamin w/ Minerals Tab PO SCH (08:41)
--- NOTE | 2019-09-23 09:50 | Progress Notes ---
DATE: 09/22/2019 DATE OF SERVICE: 09/22/2019. SUBJECTIVE: Chart was reviewed and the patient interviewed. Also discussed the patient's condition with the staff and reviewed records and labs. The patient is still guarded and is still confused, but seems to be slightly less agitated. The patient also is less angry and less irritable. Also, more cooperative with his treatment and compliant with taking his medications. He is still confused and needs redirections. ASSESSMENT: The patient is still psychotic and needs lots of redirections. TREATMENT PLAN: Continue Seroquel and Namenda same dose. Also, continue to work on behavior modification and adjusting psychotropic medications. JOB# [id number]
--- NOTE | 2019-09-23 15:31 | Internal Medicine Prog Note ---
Internal Medicine Subjective - Subjective Service Date: 09/23/19 Patient is:: awake, verbal, in bed, agitated, confused Patient Complaints of:: other (Dementia.) Per staff patient has:: no adverse event, no episodes of fall, tolerating meds Internal Medicine Objective - Physical Exam Vitals and I&O: Vital Signs Temp 98.2 F 09/23/19 14:00 Pulse 61 09/23/19 14:00 Resp 18 09/23/19 14:00 BP 119/54 09/23/19 14:00 Pulse Ox 96 09/23/19 14:00 Intake & Output 09/22/19 09/23/19 09/23/19 18:59 06:59 18:59 Intake Total 950 240 Balance 950 240 Intake: Oral 950 240 Other: # Voids 3 # Bowel Movements 0 Active Medications: Current Medications Acetaminophen (Tylenol) 650 mg PO Q4H PRN PRN Reason: Mild Pain (Scale 1-3) Stop: 11/15/19 22:45 Acetaminophen (Tylenol) 650 mg PO Q4H PRN PRN Reason: TEMP ABOVE 100 Stop: 11/21/19 14:57 Al Hydrox/Mg Hydrox/Simethicone (Maalox) 30 ml PO Q4H PRN PRN Reason: GI DISTRESS Stop: 11/15/19 22:45 Docusate Sodium (Colace) 100 mg PO BID JOSE Stop: 11/16/19 08:59 Last Admin: 09/23/19 08:41 Dose: 100 mg Lorazepam (Ativan) 0.5 mg PO Q4H PRN; Protocol PRN Reason: Anxiety Stop: 11/15/19 22:14 Last Admin: 09/22/19 08:56 Dose: 0.5 mg Magnesium Hydroxide (Milk Of Magnesia) 30 ml PO HS PRN PRN Reason: Constipation Stop: 11/15/19 22:58 Memantine (Namenda) 10 mg PO BID [facility] Stop: 11/16/19 08:59 Last Admin: 09/23/19 08:41 Dose: 10 mg Quetiapine Fumarate (Seroquel) 12.5 mg PO DAILY [facility]; Protocol Stop: 11/16/19 08:59 Last Admin: 09/23/19 08:41 Dose: 12.5 mg Quetiapine Fumarate (Seroquel) 37.5 mg PO HS [facility]; Protocol Stop: 11/16/19 20:59 Last Admin: 09/22/19 21:20 Dose: 37.5 mg Zolpidem Tartrate (Ambien) 5 mg PO HS PRN PRN Reason: Insomnia Stop: 11/15/19 22:45 Last Admin: 09/20/19 21:31 Dose: 5 mg General: alert, NAD HEENT: NC/AT, PERRLA Neck: Supple Lungs: other (no acute respiratory distress) Cardiovascular: RRR Abdomen: soft, non-tender, non-distended, positive bowel sound Extremities: clear Neurological: alert Internal Medicine Assmt/Plan - Assessment Assessment: 5150 Hold. Psychosis. Anxiety. Dementia moderate to severe. History of Degenerative joint disease. History of Acute renal failure. History of Osteoarthritis. - Plan Plan: Continuation of care. Monitor vitals and labs. Monitor diet/nutritional support. Continue present meds as directed. Supportive care. Pain management. Psych management as per Psych. Continue current treatment plan as ordered. Nutritional Asmnt/Malnutr-PDOC - Dietary Evaluation Malnutrition Findings (Please click <Entered> for more info): Nutritional Asmnt/Malnutrition Start: 09/22/19 15: 48 Text: Status: Complete Freq: Protocol: Document 09/22/19 15:48 CHITO (Rec: 09/22/19 15:51 CHITO [email or web address]) Nutritional Asmnt/Malnutrition Patient General Information Nutritional Screening Moderate Risk Diagnosis Psychosis Pertinent Medical Hx/Surgical Hx No reported medical Hx per H & P Report. Subjective Information Pt is an 84-year-old male admitted on 09/16 d/t 5150 hold for grave disability. Admitted following medical clearance from [facility] for increased aggressive behavior, striking out, and agitation. Pt is eating an estimated 90% of meals Per Meal/Nutrition Activity Record. Dietary is currently providing an estimated 1860 kcals and 50 gm Pro, per Pt PO intake this is providing an estimated 1675 kcals and 45gm Pro to meet 93% kcal and 100% Pro needs- adequate. Anthropometrics HT: 58 WT: 135 LB (61.36 kg) BMI: 20.53 (Normal) GI/ Skin Integrity GI: WNL, Non-tender BM: 09/21 x1 I/O: 1300/Not Noted Skin: WNL, Intact Wesley: 15 Diet Order: Renal, 2gmNa Estimated Energy Needs: (Renal , CBW) 9512-4290 kcals (28-30 kcals/ kg) 46-50g Pro (0.75-0.8 g/kg) 9840-2071 ml (28-30 ml/kg) Current Diet Order/ Nutrition Support Renal, 2gmNa Pertinent Medications Maalox (PRN), Colace, MOM (PRN ) Pertinent Labs 09/17: LDL 102, A1c 5.4 % 09/12: Hgb/Hct 12.2/35.7, Ca 8. 1, BUN/Cr 24/1.11, ALk Phos 142, T Protein 5.6, Alb 3.0 Nutritional Hx/Data Height 5 ft 8 in Height (Calculated Centimeters) 172.7 Current Weight (lbs) 135 lb Weight (Calculated Kilograms) 61.2 Weight (Calculated Grams) 70172.0 [place] Body Weight 154 LB (70 kg) % [place] Body Weight 88 Body Mass Index (BMI) 20.5 Weight Status Approriate GI Symptoms GI Symptoms None Last BM 09/21 x1 Skin Integrity/Comment: Skin: WNL, Intact Wesley: 15 Current %PO Good (75-100%) Estimated Nutritional Goals BEE in Kcals: Using Current wt Calories/Kcals/Kg 28-30 Kcals Calculated 4928-9351 Protein: Using Current wt Protein g/k.75-0.8 Protein Calculated 46-50 Fluid: ml 3347-4350 ml (28-30 ml/kg) Nutritional Problem 1. Problem Problem Altered nutrition related labs Etiology r/t renal dysfunction Signs/Symptoms: aeb (09/12) BUN/Cr 24/1.11, ALk Phos 142, T Protein 5.6, Alb 3.0. Malnutrition Related to Morbid Obesity Malnutrition related to morbid obesity No Intervention/Recommendation Comments Continue Renal, 2gmNa diet as tolerated. Expected Outcomes/Goals Expected Outcomes/Goals 1. PO intake to continue to meet >75% of estimated nutritional needs. 2. Monitor PO intake, wt, nutrition related labs to trend WNL, and skin integrity. 3. F/U as low risk in 7-10 days, 09/29-10/02
--- NOTE | 2019-09-23 22:51 | Progress Notes ---
DATE: 09/23/2019 SUBJECTIVE: Chart reviewed and the patient interviewed. Also discussed the patient's condition with the staff, and reviewed records and labs. The patient seems to be calmer and less irritable, but still confused. The patient also still needs lots of directions with difficulty following directions. Also, at times the patient is resisting care. Otherwise, the patient continues to comply with taking his medications with no side effects of medications. ASSESSMENT: The patient is still confused and psychotic and agitated. TREATMENT PLAN: Continue to monitor behavior and condition closely. Also, continue Seroquel on a dose of 12.5 mg in the morning and 37.5 mg at bedtime. Also, continue to work on behavior modifications and adjusting psychotropic medications. [facility]# [id number]
[2019-09-24] MEDS: Multivitamin w/ Minerals Tab PO SCH (08:58)
--- NOTE | 2019-09-24 20:44 | Internal Medicine Prog Note ---
Internal Medicine Subjective - Subjective Service Date: 09/24/19 Patient seen and examined:: with staff Patient is:: awake, verbal, in bed, agitated, confused Patient Complaints of:: other (Dementia.) Per staff patient has:: no adverse event, no episodes of fall, tolerating meds Internal Medicine Objective - Physical Exam Vitals and I&O: Vital Signs Temp 97 F 09/24/19 14:00 Pulse 70 09/24/19 15:37 Resp 20 09/24/19 14:00 BP 159/73 09/24/19 15:37 Pulse Ox 98 09/24/19 14:00 Intake & Output 09/24/19 09/24/19 09/25/19 06:59 18:59 06:59 Intake Total 120 1200 Output Total 1 Balance 119 1200 Intake: Oral 120 1200 Output: Urine/Stool Mix 1 Other: # Voids 1 # Bowel Movements 0 1 Stool Characteristics Soft Active Medications: Current Medications Acetaminophen (Tylenol) 650 mg PO Q4H PRN PRN Reason: Mild Pain (Scale 1-3) Stop: 11/15/19 22:45 Acetaminophen (Tylenol) 650 mg PO Q4H PRN PRN Reason: TEMP ABOVE 100 Stop: 11/21/19 14:57 Al Hydrox/Mg Hydrox/Simethicone (Maalox) 30 ml PO Q4H PRN PRN Reason: GI DISTRESS Stop: 11/15/19 22:45 Docusate Sodium (Colace) 100 mg PO BID JOSE Stop: 11/16/19 08:59 Last Admin: 09/24/19 17:30 Dose: 100 mg Lorazepam (Ativan) 0.5 mg PO Q4HR PRN; Protocol PRN Reason: anxiety Stop: 11/23/19 10:57 Magnesium Hydroxide (Milk Of Magnesia) 30 ml PO HS PRN PRN Reason: Constipation Stop: 11/15/19 22:58 Memantine (Namenda) 10 mg PO BID [facility] Stop: 11/16/19 08:59 Last Admin: 09/24/19 17:30 Dose: 10 mg Quetiapine Fumarate (Seroquel) 12.5 mg PO DAILY [facility]; Protocol Stop: 11/16/19 08:59 Last Admin: 09/24/19 08:58 Dose: 12.5 mg Quetiapine Fumarate (Seroquel) 37.5 mg PO HS [facility]; Protocol Stop: 11/16/19 20:59 Last Admin: 09/23/19 20:56 Dose: 37.5 mg Zolpidem Tartrate (Ambien) 5 mg PO HS PRN PRN Reason: Insomnia Stop: 11/23/19 11:00 Physical Exam: 84 y/o male patient is less agitated and aggressive, continue monitoring. General: alert, NAD HEENT: NC/AT, PERRLA Neck: Supple Lungs: other (no acute respiratory distress) Cardiovascular: RRR Abdomen: soft, non-tender, non-distended, positive bowel sound Extremities: clear Neurological: alert Internal Medicine Assmt/Plan - Assessment Assessment: 515 Hold. Psychosis. Anxiety. Dementia moderate to severe. History of Degenerative joint disease. History of Acute renal failure. History of Osteoarthritis. - Plan Plan: Continuation of care. Monitor vitals and labs. Monitor diet/nutritional support. Continue present meds as directed. Supportive care. Pain management. Psych management as per Psych. Continue current treatment plan as ordered. Nutritional Asmnt/Malnutr-PDOC - Dietary Evaluation Malnutrition Findings (Please click <Entered> for more info): Nutritional Asmnt/Malnutrition Start: 09/22/19 15: 48 Text: Status: Complete Freq: Protocol: Document 09/22/19 15:48 CHITO (Rec: 09/22/19 15:51 CHITO [email or web address]) Nutritional Asmnt/Malnutrition Patient General Information Nutritional Screening Moderate Risk Diagnosis Psychosis Pertinent Medical Hx/Surgical Hx No reported medical Hx per H & P Report. Subjective Information Pt is an 84-year-old male admitted on 09/16 d/t 5150 hold for grave disability. Admitted following medical clearance from [facility] for increased aggressive behavior, striking out, and agitation. Pt is eating an estimated 90% of meals Per Meal/Nutrition Activity Record. Dietary is currently providing an estimated 1860 kcals and 50 gm Pro, per Pt PO intake this is providing an estimated 1675 kcals and 45gm Pro to meet 93% kcal and 100% Pro needs- adequate. Anthropometrics HT: 58 WT: 135 LB (61.36 kg) BMI: 20.53 (Normal) GI/ Skin Integrity GI: WNL, Non-tender BM: 09/21 x1 I/O: 1300/Not Noted Skin: WNL, Intact Wesley: 15 Diet Order: Renal, 2gmNa Estimated Energy Needs: (Renal , CBW) 6019-5892 kcals (28-30 kcals/ kg) 46-50g Pro (0.75-0.8 g/kg) 7646-8741 ml (28-30 ml/kg) Current Diet Order/ Nutrition Support Renal, 2gmNa Pertinent Medications Maalox (PRN), Colace, MOM (PRN ) Pertinent Labs 09/17: LDL 102, A1c 5.4 % 09/12: Hgb/Hct 12.2/35.7, Ca 8. 1, BUN/Cr 24/1.11, ALk Phos 142, T Protein 5.6, Alb 3.0 Nutritional Hx/Data Height 1.73 m Height (Calculated Centimeters) 172.7 Current Weight (lbs) 61.235 kg Weight (Calculated Kilograms) 61.2 Weight (Calculated Grams) 71304.0 [place] Body Weight 154 LB (70 kg) % [place] Body Weight 88 Body Mass Index (BMI) 20.5 Weight Status Approriate GI Symptoms GI Symptoms None Last BM 09/21 x1 Skin Integrity/Comment: Skin: WNL, Intact Wesley: 15 Current %PO Good (75-100%) Estimated Nutritional Goals BEE in Kcals: Using Current wt Calories/Kcals/Kg 28-30 Kcals Calculated 5191-5010 Protein: Using Current wt Protein g/k.75-0.8 Protein Calculated 46-50 Fluid: ml 8731-8042 ml (28-30 ml/kg) Nutritional Problem 1. Problem Problem Altered nutrition related labs Etiology r/t renal dysfunction Signs/Symptoms: aeb (09/12) BUN/Cr 24/1.11, ALk Phos 142, T Protein 5.6, Alb 3.0. Malnutrition Related to Morbid Obesity Malnutrition related to morbid obesity No Intervention/Recommendation Comments Continue Renal, 2gmNa diet as tolerated. Expected Outcomes/Goals Expected Outcomes/Goals 1. PO intake to continue to meet >75% of estimated nutritional needs. 2. Monitor PO intake, wt, nutrition related labs to trend WNL, and skin integrity. 3. F/U as low risk in 7-10 days, 09/29-10/02
--- NOTE | 2019-09-24 23:04 | Progress Notes ---
DATE: 09/24/2019 PSYCHIATRIC PROGRESS NOTE Chart reviewed and the patient interviewed. Also discussed the patient's condition with the staff and reviewed records and labs. The patient is still confused and only oriented to his name. The patient also is suspicious and is paranoid and anxious. The patient also still has episodes of yelling and screaming and needs lots of redirections and sometimes it is difficult to redirect him. The patient also still has mood swings and at times calm and cooperative and other times agitated. ASSESSMENT: The patient is still agitated and is confused. TREATMENT PLAN: Continue to monitor his behavior and his condition closely. Also, continue Seroquel in a dose of 12.5 mg in the morning and 37.5 mg at this time and continue to work on behavior modification. JOB# [id number]
--- NOTE | 2019-09-25 07:30 | Progress Notes ---
DATE: 09/25/2019 PSYCHIATRIC PROGRESS NOTE SUBJECTIVE: Chart was reviewed and the patient interviewed. Also discussed the patient's condition with the staff and reviewed records and labs. The patient continued to be confused and still needs lots of redirections. The patient also is interacting minimally with others because of his confusion. The patient also during my interview was waving up with his arm to the air kind of pointing out to imaginary objects, but he was not able to elaborate of what was he was doing. The patient also according to staff slept most of yesterday morning and was awake most of the night. Otherwise, the patient has continued to comply with taking medications with no side effects of medications. ASSESSMENT: The patient is still confused and is still agitated. TREATMENT PLAN: We will continue to monitor his behavior. Also, we will decrease Namenda to 10 mg at bedtime and also, we will stop Seroquel 12.5 mg in the morning and we will increase Seroquel to 50 mg at bedtime; hopefully, that will help the patient sleep better at night and stay awake during the day. At the same time, we will continue working on behavior and to follow up closely. JOB# [id number]
[2019-09-25] MEDS: Multivitamin w/ Minerals Tab PO SCH (08:43)
--- NOTE | 2019-09-25 18:18 | Internal Medicine Prog Note ---
Internal Medicine Subjective - Subjective Service Date: 09/25/19 Patient is:: awake, verbal, in bed, agitated, confused Patient Complaints of:: other (Dementia.) Per staff patient has:: no adverse event, no episodes of fall, tolerating meds Internal Medicine Objective - Physical Exam Vitals and I&O: Vital Signs Temp 98.7 F 09/25/19 13:47 Pulse 72 09/25/19 13:47 Resp 20 09/25/19 13:47 BP 117/72 09/25/19 13:47 Pulse Ox 96 09/25/19 13:47 Intake & Output 09/24/19 09/25/19 09/25/19 18:59 06:59 18:59 Intake Total 1200 120 Balance 1200 120 Intake: Oral 1200 120 Other: # Voids 3 # Bowel Movements 1 Stool Characteristics Soft Active Medications: Current Medications Acetaminophen (Tylenol) 650 mg PO Q4H PRN PRN Reason: Mild Pain (Scale 1-3) Stop: 11/15/19 22:45 Acetaminophen (Tylenol) 650 mg PO Q4H PRN PRN Reason: TEMP ABOVE 100 Stop: 11/21/19 14:57 Al Hydrox/Mg Hydrox/Simethicone (Maalox) 30 ml PO Q4H PRN PRN Reason: GI DISTRESS Stop: 11/15/19 22:45 Docusate Sodium (Colace) 100 mg PO BID [facility] Stop: 11/16/19 08:59 Last Admin: 09/25/19 16:35 Dose: 100 mg Lorazepam (Ativan) 0.5 mg PO Q4HR PRN; Protocol PRN Reason: anxiety Stop: 11/23/19 10:57 Magnesium Hydroxide (Milk Of Magnesia) 30 ml PO HS PRN PRN Reason: Constipation Stop: 11/15/19 22:58 Memantine (Namenda) 10 mg PO DAILY JOSE Stop: 11/24/19 08:59 Last Admin: 09/25/19 08:43 Dose: 10 mg Quetiapine Fumarate (Seroquel) 50 mg PO HS JOSE; Protocol Stop: 11/24/19 20:59 Zolpidem Tartrate (Ambien) 5 mg PO HS PRN PRN Reason: Insomnia Stop: 11/23/19 11:00 General: alert, NAD HEENT: NC/AT, PERRLA Neck: Supple Lungs: other (no acute respiratory distress) Cardiovascular: RRR Abdomen: soft, non-tender, non-distended, positive bowel sound Extremities: clear Neurological: alert Internal Medicine Assmt/Plan - Assessment Assessment: 5150 Hold. Psychosis. Anxiety. Dementia moderate to severe. History of Degenerative joint disease. History of Acute renal failure. History of Osteoarthritis. - Plan Plan: Continuation of care. Monitor vitals and labs. Monitor diet/nutritional support. Continue present meds as directed. Supportive care. Pain management. Psych management as per Psych. Continue current treatment plan as ordered. Nutritional Asmnt/Malnutr-PDOC - Dietary Evaluation Malnutrition Findings (Please click <Entered> for more info): Nutritional Asmnt/Malnutrition Start: 09/22/19 15: 48 Text: Status: Complete Freq: Protocol: Document 09/22/19 15:48 CHITO (Rec: 09/22/19 15:51 CHITO [email or web address]) Nutritional Asmnt/Malnutrition Patient General Information Nutritional Screening Moderate Risk Diagnosis Psychosis Pertinent Medical Hx/Surgical Hx No reported medical Hx per H & P Report. Subjective Information Pt is an 84-year-old male admitted on 09/16 d/t 5150 hold for grave disability. Admitted following medical clearance from [facility] for increased aggressive behavior, striking out, and agitation. Pt is eating an estimated 90% of meals Per Meal/Nutrition Activity Record. Dietary is currently providing an estimated 1860 kcals and 50 gm Pro, per Pt PO intake this is providing an estimated 1675 kcals and 45gm Pro to meet 93% kcal and 100% Pro needs- adequate. Anthropometrics HT: 58 WT: 135 LB (61.36 kg) BMI: 20.53 (Normal) GI/ Skin Integrity GI: WNL, Non-tender BM: 09/21 x1 I/O: 1300/Not Noted Skin: WNL, Intact Wesley: 15 Diet Order: Renal, 2gmNa Estimated Energy Needs: (Renal , CBW) 6305-2800 kcals (28-30 kcals/ kg) 46-50g Pro (0.75-0.8 g/kg) 5655-2935 ml (28-30 ml/kg) Current Diet Order/ Nutrition Support Renal, 2gmNa Pertinent Medications Maalox (PRN), Colace, MOM (PRN ) Pertinent Labs 09/17: LDL 102, A1c 5.4 % 09/12: Hgb/Hct 12.2/35.7, Ca 8. 1, BUN/Cr 24/1.11, ALk Phos 142, T Protein 5.6, Alb 3.0 Nutritional Hx/Data Height 5 ft 8 in Height (Calculated Centimeters) 172.7 Current Weight (lbs) 135 lb Weight (Calculated Kilograms) 61.2 Weight (Calculated Grams) 58933.0 [place] Body Weight 154 LB (70 kg) % [place] Body Weight 88 Body Mass Index (BMI) 20.5 Weight Status Approriate GI Symptoms GI Symptoms None Last BM 09/21 x1 Skin Integrity/Comment: Skin: WNL, Intact Wesley: 15 Current %PO Good (75-100%) Estimated Nutritional Goals BEE in Kcals: Using Current wt Calories/Kcals/Kg 28-30 Kcals Calculated 6172-5499 Protein: Using Current wt Protein g/k.75-0.8 Protein Calculated 46-50 Fluid: ml 4285-8162 ml (28-30 ml/kg) Nutritional Problem 1. Problem Problem Altered nutrition related labs Etiology r/t renal dysfunction Signs/Symptoms: aeb (09/12) BUN/Cr 24/1.11, ALk Phos 142, T Protein 5.6, Alb 3.0. Malnutrition Related to Morbid Obesity Malnutrition related to morbid obesity No Intervention/Recommendation Comments Continue Renal, 2gmNa diet as tolerated. Expected Outcomes/Goals Expected Outcomes/Goals 1. PO intake to continue to meet >75% of estimated nutritional needs. 2. Monitor PO intake, wt, nutrition related labs to trend WNL, and skin integrity. 3. F/U as low risk in 7-10 days, 09/29-10/02
[2019-09-26] MEDS: Multivitamin w/ Minerals Tab PO SCH (09:58)
--- NOTE | 2019-09-26 16:30 | Internal Medicine Prog Note ---
Internal Medicine Subjective - Subjective Service Date: 09/26/19 Patient seen and examined:: with staff Patient is:: awake, verbal, in bed, agitated, confused Patient Complaints of:: other (Dementia.) Per staff patient has:: no adverse event, no episodes of fall, tolerating meds Internal Medicine Objective - Physical Exam Vitals and I&O: Vital Signs Temp 97.6 F 09/26/19 14:00 Pulse 62 09/26/19 14:00 Resp 18 09/26/19 14:00 BP 147/95 09/26/19 14:00 Pulse Ox 97 09/26/19 14:00 Intake & Output 09/25/19 09/26/19 09/26/19 18:59 06:59 18:59 Intake Total 120 Balance 120 Intake: Oral 120 Other: # Voids 3 Active Medications: Current Medications Acetaminophen (Tylenol) 650 mg PO Q4H PRN PRN Reason: Mild Pain (Scale 1-3) Stop: 11/15/19 22:45 Acetaminophen (Tylenol) 650 mg PO Q4H PRN PRN Reason: TEMP ABOVE 100 Stop: 11/21/19 14:57 Al Hydrox/Mg Hydrox/Simethicone (Maalox) 30 ml PO Q4H PRN PRN Reason: GI DISTRESS Stop: 11/15/19 22:45 Docusate Sodium (Colace) 100 mg PO BID JOSE Stop: 11/16/19 08:59 Last Admin: 09/26/19 09:58 Dose: 100 mg Lorazepam (Ativan) 0.5 mg PO Q4HR PRN; Protocol PRN Reason: anxiety Stop: 11/23/19 10:57 Magnesium Hydroxide (Milk Of Magnesia) 30 ml PO HS PRN PRN Reason: Constipation Stop: 11/15/19 22:58 Memantine (Namenda) 10 mg PO DAILY [facility] Stop: 11/24/19 08:59 Last Admin: 09/26/19 09:58 Dose: 10 mg Quetiapine Fumarate (Seroquel) 50 mg PO HS [facility]; Protocol Stop: 11/24/19 20:59 Last Admin: 09/25/19 21:35 Dose: 50 mg Zolpidem Tartrate (Ambien) 5 mg PO HS PRN PRN Reason: Insomnia Stop: 11/23/19 11:00 Physical Exam: 84 y/o male patient is still having mood swings, continue monitoring. General: alert, NAD HEENT: NC/AT, PERRLA Neck: Supple Lungs: other (no acute respiratory distress) Cardiovascular: RRR Abdomen: soft, non-tender, non-distended, positive bowel sound Extremities: clear Neurological: alert Internal Medicine Assmt/Plan - Assessment Assessment: 5150 Hold. Psychosis. Anxiety. Dementia moderate to severe. History of Degenerative joint disease. History of Acute renal failure. History of Osteoarthritis. - Plan Plan: Continuation of care. Monitor vitals and labs. Monitor diet/nutritional support. Continue present meds as directed. Supportive care. Pain management. Psych management as per Psych. Continue current treatment plan as ordered. Nutritional Asmnt/Malnutr-PDOC - Dietary Evaluation Malnutrition Findings (Please click <Entered> for more info): Nutritional Asmnt/Malnutrition Start: 09/22/19 15: 48 Text: Status: Complete Freq: Protocol: Document 09/22/19 15:48 CHITO (Rec: 09/22/19 15:51 CHITO [email or web address]) Nutritional Asmnt/Malnutrition Patient General Information Nutritional Screening Moderate Risk Diagnosis Psychosis Pertinent Medical Hx/Surgical Hx No reported medical Hx per H & P Report. Subjective Information Pt is an 84-year-old male admitted on 09/16 d/t 5150 hold for grave disability. Admitted following medical clearance from [facility] for increased aggressive behavior, striking out, and agitation. Pt is eating an estimated 90% of meals Per Meal/Nutrition Activity Record. Dietary is currently providing an estimated 1860 kcals and 50 gm Pro, per Pt PO intake this is providing an estimated 1675 kcals and 45gm Pro to meet 93% kcal and 100% Pro needs- adequate. Anthropometrics HT: 58 WT: 135 LB (61.36 kg) BMI: 20.53 (Normal) GI/ Skin Integrity GI: WNL, Non-tender BM: 09/21 x1 I/O: 1300/Not Noted Skin: WNL, Intact Wesley: 15 Diet Order: Renal, 2gmNa Estimated Energy Needs: (Renal , CBW) 9555-1551 kcals (28-30 kcals/ kg) 46-50g Pro (0.75-0.8 g/kg) 4048-9937 ml (28-30 ml/kg) Current Diet Order/ Nutrition Support Renal, 2gmNa Pertinent Medications Maalox (PRN), Colace, MOM (PRN ) Pertinent Labs 09/17: LDL 102, A1c 5.4 % 09/12: Hgb/Hct 12.2/35.7, Ca 8. 1, BUN/Cr 24/1.11, ALk Phos 142, T Protein 5.6, Alb 3.0 Nutritional Hx/Data Height 1.73 m Height (Calculated Centimeters) 172.7 Current Weight (lbs) 61.235 kg Weight (Calculated Kilograms) 61.2 Weight (Calculated Grams) 45938.0 [place] Body Weight 154 LB (70 kg) % [place] Body Weight 88 Body Mass Index (BMI) 20.5 Weight Status Approriate GI Symptoms GI Symptoms None Last BM 09/21 x1 Skin Integrity/Comment: Skin: WNL, Intact Wesley: 15 Current %PO Good (75-100%) Estimated Nutritional Goals BEE in Kcals: Using Current wt Calories/Kcals/Kg 28-30 Kcals Calculated 1421-4200 Protein: Using Current wt Protein g/k.75-0.8 Protein Calculated 46-50 Fluid: ml 8712-7186 ml (28-30 ml/kg) Nutritional Problem 1. Problem Problem Altered nutrition related labs Etiology r/t renal dysfunction Signs/Symptoms: aeb (09/12) BUN/Cr 24/1.11, ALk Phos 142, T Protein 5.6, Alb 3.0. Malnutrition Related to Morbid Obesity Malnutrition related to morbid obesity No Intervention/Recommendation Comments Continue Renal, 2gmNa diet as tolerated. Expected Outcomes/Goals Expected Outcomes/Goals 1. PO intake to continue to meet >75% of estimated nutritional needs. 2. Monitor PO intake, wt, nutrition related labs to trend WNL, and skin integrity. 3. F/U as low risk in 7-10 days, 09/29-10/02
[2019-09-27] MEDS: Multivitamin w/ Minerals Tab PO SCH (09:27)
--- NOTE | 2019-09-27 12:37 | Internal Medicine Prog Note ---
Internal Medicine Subjective - Subjective Service Date: 09/27/19 Patient seen and examined:: with staff Patient is:: awake, verbal, agitated, confused Patient Complaints of:: other (Dementia.) Per staff patient has:: no adverse event, no episodes of fall, tolerating meds Internal Medicine Objective - Physical Exam Vitals and I&O: Vital Signs Temp 98.2 F 09/27/19 06:27 Pulse 78 09/27/19 06:27 Resp 18 09/27/19 08:00 BP 154/89 09/27/19 06:27 Pulse Ox 97 09/27/19 06:27 Intake & Output 09/26/19 09/27/19 09/27/19 18:59 06:59 18:59 Intake Total 950 480 Output Total 3 Balance 950 477 Intake: Oral 950 480 Output: Urine/Stool Mix 3 Other: # Voids 1 # Bowel Movements 1 Active Medications: Current Medications Acetaminophen (Tylenol) 650 mg PO Q4H PRN PRN Reason: Mild Pain (Scale 1-3) Stop: 11/15/19 22:45 Acetaminophen (Tylenol) 650 mg PO Q4H PRN PRN Reason: TEMP ABOVE 100 Stop: 11/21/19 14:57 Al Hydrox/Mg Hydrox/Simethicone (Maalox) 30 ml PO Q4H PRN PRN Reason: GI DISTRESS Stop: 11/15/19 22:45 Docusate Sodium (Colace) 100 mg PO BID JOSE Stop: 11/16/19 08:59 Last Admin: 09/27/19 09:27 Dose: 100 mg Lorazepam (Ativan) 0.5 mg PO Q4HR PRN; Protocol PRN Reason: anxiety Stop: 11/23/19 10:57 Magnesium Hydroxide (Milk Of Magnesia) 30 ml PO HS PRN PRN Reason: Constipation Stop: 11/15/19 22:58 Memantine (Namenda) 10 mg PO DAILY JOSE Stop: 11/24/19 08:59 Last Admin: 09/27/19 09:27 Dose: 10 mg Quetiapine Fumarate (Seroquel) 50 mg PO HS JOSE; Protocol Stop: 11/24/19 20:59 Last Admin: 09/26/19 21:21 Dose: 50 mg Zolpidem Tartrate (Ambien) 5 mg PO HS PRN PRN Reason: Insomnia Stop: 11/23/19 11:00 Physical Exam: 84 y/o male patient is still very irritable and easily frustrated, needs close monitoring. General: alert, NAD HEENT: NC/AT, PERRLA Neck: Supple Lungs: other (no acute respiratory distress) Cardiovascular: RRR Abdomen: soft, non-tender, non-distended, positive bowel sound Extremities: clear Neurological: alert Internal Medicine Assmt/Plan - Assessment Assessment: 5150 Hold. Psychosis. Anxiety. Dementia moderate to severe. History of Degenerative joint disease. History of Acute renal failure. History of Osteoarthritis. - Plan Plan: Continuation of care. Monitor vitals and labs. Monitor diet/nutritional support. Continue present meds as directed. Supportive care. Pain management. Psych management as per Psych. Continue current treatment plan as ordered. Nutritional Asmnt/Malnutr-PDOC - Dietary Evaluation Malnutrition Findings (Please click <Entered> for more info): Nutritional Asmnt/Malnutrition Start: 09/22/19 15: 48 Text: Status: Complete Freq: Protocol: Document 09/22/19 15:48 CHITO (Rec: 09/22/19 15:51 [email or web address] [email or web address]) Nutritional Asmnt/Malnutrition Patient General Information Nutritional Screening Moderate Risk Diagnosis Psychosis Pertinent Medical Hx/Surgical Hx No reported medical Hx per H & P Report. Subjective Information Pt is an 84-year-old male admitted on 09/16 d/t 5150 hold for grave disability. Admitted following medical clearance from [facility] for increased aggressive behavior, striking out, and agitation. Pt is eating an estimated 90% of meals Per Meal/Nutrition Activity Record. Dietary is currently providing an estimated 1860 kcals and 50 gm Pro, per Pt PO intake this is providing an estimated 1675 kcals and 45gm Pro to meet 93% kcal and 100% Pro needs- adequate. Anthropometrics HT: 58 WT: 135 LB (61.36 kg) BMI: 20.53 (Normal) GI/ Skin Integrity GI: WNL, Non-tender BM: 09/21 x1 I/O: 1300/Not Noted Skin: WNL, Intact Wesley: 15 Diet Order: Renal, 2gmNa Estimated Energy Needs: (Renal , CBW) 7669-8854 kcals (28-30 kcals/ kg) 46-50g Pro (0.75-0.8 g/kg) 8543-4360 ml (28-30 ml/kg) Current Diet Order/ Nutrition Support Renal, 2gmNa Pertinent Medications Maalox (PRN), Colace, MOM (PRN ) Pertinent Labs 09/17: LDL 102, A1c 5.4 % 09/12: Hgb/Hct 12.2/35.7, Ca 8. 1, BUN/Cr 24/1.11, ALk Phos 142, T Protein 5.6, Alb 3.0 Nutritional Hx/Data Height 1.73 m Height (Calculated Centimeters) 172.7 Current Weight (lbs) 61.235 kg Weight (Calculated Kilograms) 61.2 Weight (Calculated Grams) 43615.0 [place] Body Weight 154 LB (70 kg) % [place] Body Weight 88 Body Mass Index (BMI) 20.5 Weight Status Approriate GI Symptoms GI Symptoms None Last BM 09/21 x1 Skin Integrity/Comment: Skin: WNL, Intact Wesley: 15 Current %PO Good (75-100%) Estimated Nutritional Goals BEE in Kcals: Using Current wt Calories/Kcals/Kg 28-30 Kcals Calculated 3522-0459 Protein: Using Current wt Protein g/k.75-0.8 Protein Calculated 46-50 Fluid: ml 4120-4576 ml (28-30 ml/kg) Nutritional Problem 1. Problem Problem Altered nutrition related labs Etiology r/t renal dysfunction Signs/Symptoms: aeb (09/12) BUN/Cr 24/1.11, ALk Phos 142, T Protein 5.6, Alb 3.0. Malnutrition Related to Morbid Obesity Malnutrition related to morbid obesity No Intervention/Recommendation Comments Continue Renal, 2gmNa diet as tolerated. Expected Outcomes/Goals Expected Outcomes/Goals 1. PO intake to continue to meet >75% of estimated nutritional needs. 2. Monitor PO intake, wt, nutrition related labs to trend WNL, and skin integrity. 3. F/U as low risk in 7-10 days, 09/29-10/02
[2019-09-28] MEDS: Multivitamin w/ Minerals Tab PO SCH (09:26)
--- NOTE | 2019-09-28 11:31 | Internal Medicine Prog Note ---
Internal Medicine Subjective - Subjective Patient is:: awake, verbal, troy chair, agitated, confused Patient Complaints of:: other (Dementia.) Per staff patient has:: no adverse event, no episodes of fall, tolerating meds Internal Medicine Objective - Physical Exam Vitals and I&O: Vital Signs Temp 97.6 F 09/28/19 06:22 Pulse 74 09/28/19 06:22 Resp 18 09/28/19 08:00 BP 151/75 09/28/19 06:22 Pulse Ox 93 09/28/19 06:22 Intake & Output 09/27/19 09/28/19 09/28/19 18:59 06:59 18:59 Intake Total 1200 240 Balance 1200 240 Intake: Oral 1200 240 Other: # Voids 1,100 2 # Bowel Movements 0 Active Medications: Current Medications Acetaminophen (Tylenol) 650 mg PO Q4H PRN PRN Reason: Mild Pain (Scale 1-3) Stop: 11/15/19 22:45 Acetaminophen (Tylenol) 650 mg PO Q4H PRN PRN Reason: TEMP ABOVE 100 Stop: 11/21/19 14:57 Al Hydrox/Mg Hydrox/Simethicone (Maalox) 30 ml PO Q4H PRN PRN Reason: GI DISTRESS Stop: 11/15/19 22:45 Docusate Sodium (Colace) 100 mg PO BID [facility] Stop: 11/16/19 08:59 Last Admin: 09/28/19 09:24 Dose: 100 mg Lorazepam (Ativan) 0.5 mg PO Q4HR PRN; Protocol PRN Reason: anxiety Stop: 11/23/19 10:57 Magnesium Hydroxide (Milk Of Magnesia) 30 ml PO HS PRN PRN Reason: Constipation Stop: 11/15/19 22:58 Memantine (Namenda) 10 mg PO DAILY [facility] Stop: 11/24/19 08:59 Last Admin: 09/28/19 09:24 Dose: 10 mg Quetiapine Fumarate (Seroquel) 50 mg PO HS [facility]; Protocol Stop: 11/24/19 20:59 Last Admin: 09/27/19 21:02 Dose: 50 mg Zolpidem Tartrate (Ambien) 5 mg PO HS PRN PRN Reason: Insomnia Stop: 11/23/19 11:00 General: alert, NAD HEENT: NC/AT, PERRLA Neck: Supple, No JVD Lungs: other (no acute respiratory distress) Cardiovascular: RRR Abdomen: soft, non-tender, non-distended Extremities: clear Neurological: alert Internal Medicine Assmt/Plan - Assessment Assessment: 5150 Hold. Psychosis. Anxiety. Dementia moderate to severe. History of Degenerative joint disease. History of Acute renal failure. History of Osteoarthritis. - Plan Plan: Continue current treatment plan. Monitor Labs. Continue current medications Continue to monitor VS Monitor Diet/Nutritional support. Psych management per Psychiatry. Pain Management. PT/OT prnSafety precaution, Fall precaution, frequent nursing round. Supportive care. Continue collaborating with consulting specialists, case management and nursing team Nutritional Asmnt/Malnutr-PDOC - Dietary Evaluation Malnutrition Findings (Please click <Entered> for more info): Nutritional Asmnt/Malnutrition Start: 09/22/19 15: 48 Text: Status: Complete Freq: Protocol: Document 09/22/19 15:48 CHITO (Rec: 09/22/19 15:51 [email or web address] [email or web address]) Nutritional Asmnt/Malnutrition Patient General Information Nutritional Screening Moderate Risk Diagnosis Psychosis Pertinent Medical Hx/Surgical Hx No reported medical Hx per H & P Report. Subjective Information Pt is an 84-year-old male admitted on 09/16 d/t 5150 hold for grave disability. Admitted following medical clearance from [facility] for increased aggressive behavior, striking out, and agitation. Pt is eating an estimated 90% of meals Per Meal/Nutrition Activity Record. Dietary is currently providing an estimated 1860 kcals and 50 gm Pro, per Pt PO intake this is providing an estimated 1675 kcals and 45gm Pro to meet 93% kcal and 100% Pro needs- adequate. Anthropometrics HT: 58 WT: 135 LB (61.36 kg) BMI: 20.53 (Normal) GI/ Skin Integrity GI: WNL, Non-tender BM: 09/21 x1 I/O: 1300/Not Noted Skin: WNL, Intact Wesley: 15 Diet Order: Renal, 2gmNa Estimated Energy Needs: (Renal , CBW) 9122-5380 kcals (28-30 kcals/ kg) 46-50g Pro (0.75-0.8 g/kg) 3073-5072 ml (28-30 ml/kg) Current Diet Order/ Nutrition Support Renal, 2gmNa Pertinent Medications Maalox (PRN), Colace, MOM (PRN ) Pertinent Labs 09/17: LDL 102, A1c 5.4 % 09/12: Hgb/Hct 12.2/35.7, Ca 8. 1, BUN/Cr 24/1.11, ALk Phos 142, T Protein 5.6, Alb 3.0 Nutritional Hx/Data Height 5 ft 8 in Height (Calculated Centimeters) 172.7 Current Weight (lbs) 135 lb Weight (Calculated Kilograms) 61.2 Weight (Calculated Grams) 96035.0 [place] Body Weight 154 LB (70 kg) % [place] Body Weight 88 Body Mass Index (BMI) 20.5 Weight Status Approriate GI Symptoms GI Symptoms None Last BM 09/21 x1 Skin Integrity/Comment: Skin: WNL, Intact Wesley: 15 Current %PO Good (75-100%) Estimated Nutritional Goals BEE in Kcals: Using Current wt Calories/Kcals/Kg 28-30 Kcals Calculated 2715-0395 Protein: Using Current wt Protein g/k.75-0.8 Protein Calculated 46-50 Fluid: ml 7202-2958 ml (28-30 ml/kg) Nutritional Problem 1. Problem Problem Altered nutrition related labs Etiology r/t renal dysfunction Signs/Symptoms: aeb (09/12) BUN/Cr 24/1.11, ALk Phos 142, T Protein 5.6, Alb 3.0. Malnutrition Related to Morbid Obesity Malnutrition related to morbid obesity No Intervention/Recommendation Comments Continue Renal, 2gmNa diet as tolerated. Expected Outcomes/Goals Expected Outcomes/Goals 1. PO intake to continue to meet >75% of estimated nutritional needs. 2. Monitor PO intake, wt, nutrition related labs to trend WNL, and skin integrity. 3. F/U as low risk in 7-10 days, 09/29-10/02
--- NOTE | 2019-09-28 17:03 | Progress Notes ---
DATE: 09/26/2019 SUBJECTIVE: Chart was reviewed and the patient interviewed. Also discussed the patient's condition with the staff and reviewed records and labs. The patient is still confused and forgetful. The patient also is still anxious and still has episodes of irritability, but seems to be less than before. He also is interacting slightly more, but with confusion and inability to express himself or his feelings. ASSESSMENT: The patient is still confused, but seems to be slightly less agitated and easier to redirect him. TREATMENT PLAN: Continue Risperdal in a dose of 1 mg twice a day. The patient also is sleeping better with the trazodone. Also, continue to monitor psychotropic medications and followup. [facility]# [id number]
--- NOTE | 2019-09-28 18:03 | Internal Medicine Prog Note ---
Internal Medicine Subjective - Subjective Service Date: 09/28/19 Patient seen and examined:: with staff Patient is:: awake, verbal, troy chair, agitated, confused Patient Complaints of:: other (Dementia.) Per staff patient has:: no adverse event, no episodes of fall, tolerating meds Internal Medicine Objective - Physical Exam Vitals and I&O: Vital Signs Temp 97.0 F 09/28/19 14:00 Pulse 61 09/28/19 14:00 Resp 20 09/28/19 14:00 BP 130/63 09/28/19 14:00 Pulse Ox 99 09/28/19 14:00 Intake & Output 09/27/19 09/28/19 09/28/19 18:59 06:59 18:59 Intake Total 1200 240 Balance 1200 240 Intake: Oral 1200 240 Other: # Voids 1,100 2 # Bowel Movements 0 Active Medications: Current Medications Acetaminophen (Tylenol) 650 mg PO Q4H PRN PRN Reason: Mild Pain (Scale 1-3) Stop: 11/15/19 22:45 Acetaminophen (Tylenol) 650 mg PO Q4H PRN PRN Reason: TEMP ABOVE 100 Stop: 11/21/19 14:57 Al Hydrox/Mg Hydrox/Simethicone (Maalox) 30 ml PO Q4H PRN PRN Reason: GI DISTRESS Stop: 11/15/19 22:45 Docusate Sodium (Colace) 100 mg PO BID JOSE Stop: 11/16/19 08:59 Last Admin: 09/28/19 16:50 Dose: 100 mg Lorazepam (Ativan) 0.5 mg PO Q4HR PRN; Protocol PRN Reason: anxiety Stop: 11/23/19 10:57 Magnesium Hydroxide (Milk Of Magnesia) 30 ml PO HS PRN PRN Reason: Constipation Stop: 11/15/19 22:58 Memantine (Namenda) 10 mg PO DAILY JOSE Stop: 11/24/19 08:59 Last Admin: 09/28/19 09:24 Dose: 10 mg Quetiapine Fumarate (Seroquel) 50 mg PO HS JOSE; Protocol Stop: 11/24/19 20:59 Last Admin: 09/27/19 21:02 Dose: 50 mg Zolpidem Tartrate (Ambien) 5 mg PO HS PRN PRN Reason: Insomnia Stop: 11/23/19 11:00 Physical Exam: 84 y/o male patient is very aggressive and agitated, needs close monitoring. General: alert, NAD HEENT: NC/AT, PERRLA Neck: Supple, No JVD Lungs: other (no acute respiratory distress) Cardiovascular: RRR Abdomen: soft, non-tender, non-distended Extremities: clear Neurological: alert Internal Medicine Assmt/Plan - Assessment Assessment: 5150 Hold. Psychosis. Anxiety. Dementia moderate to severe. History of Degenerative joint disease. History of Acute renal failure. History of Osteoarthritis. - Plan Plan: Continuation of care. Monitor vitals and labs. Monitor diet/nutritional support. Continue present meds as directed. Supportive care. Pain management. Psych management as per Psych. Continue current treatment plan as ordered. Nutritional Asmnt/Malnutr-PDOC - Dietary Evaluation Malnutrition Findings (Please click <Entered> for more info): Nutritional Asmnt/Malnutrition Start: 09/22/19 15: 48 Text: Status: Complete Freq: Protocol: Document 09/22/19 15:48 CHITO (Rec: 09/22/19 15:51 CHITO [email or web address]) Nutritional Asmnt/Malnutrition Patient General Information Nutritional Screening Moderate Risk Diagnosis Psychosis Pertinent Medical Hx/Surgical Hx No reported medical Hx per H & P Report. Subjective Information Pt is an 84-year-old male admitted on 09/16 d/t 5150 hold for grave disability. Admitted following medical clearance from [facility] for increased aggressive behavior, striking out, and agitation. Pt is eating an estimated 90% of meals Per Meal/Nutrition Activity Record. Dietary is currently providing an estimated 1860 kcals and 50 gm Pro, per Pt PO intake this is providing an estimated 1675 kcals and 45gm Pro to meet 93% kcal and 100% Pro needs- adequate. Anthropometrics HT: 58 WT: 135 LB (61.36 kg) BMI: 20.53 (Normal) GI/ Skin Integrity GI: WNL, Non-tender BM: 09/21 x1 I/O: 1300/Not Noted Skin: WNL, Intact Wesley: 15 Diet Order: Renal, 2gmNa Estimated Energy Needs: (Renal , CBW) 0542-5159 kcals (28-30 kcals/ kg) 46-50g Pro (0.75-0.8 g/kg) 0963-4070 ml (28-30 ml/kg) Current Diet Order/ Nutrition Support Renal, 2gmNa Pertinent Medications Maalox (PRN), Colace, MOM (PRN ) Pertinent Labs 09/17: LDL 102, A1c 5.4 % 09/12: Hgb/Hct 12.2/35.7, Ca 8. 1, BUN/Cr 24/1.11, ALk Phos 142, T Protein 5.6, Alb 3.0 Nutritional Hx/Data Height 1.73 m Height (Calculated Centimeters) 172.7 Current Weight (lbs) 61.235 kg Weight (Calculated Kilograms) 61.2 Weight (Calculated Grams) 62886.0 [place] Body Weight 154 LB (70 kg) % [place] Body Weight 88 Body Mass Index (BMI) 20.5 Weight Status Approriate GI Symptoms GI Symptoms None Last BM 09/21 x1 Skin Integrity/Comment: Skin: WNL, Intact Wesley: 15 Current %PO Good (75-100%) Estimated Nutritional Goals BEE in Kcals: Using Current wt Calories/Kcals/Kg 28-30 Kcals Calculated 4185-8431 Protein: Using Current wt Protein g/k.75-0.8 Protein Calculated 46-50 Fluid: ml 1439-7273 ml (28-30 ml/kg) Nutritional Problem 1. Problem Problem Altered nutrition related labs Etiology r/t renal dysfunction Signs/Symptoms: aeb (09/12) BUN/Cr 24/1.11, ALk Phos 142, T Protein 5.6, Alb 3.0. Malnutrition Related to Morbid Obesity Malnutrition related to morbid obesity No Intervention/Recommendation Comments Continue Renal, 2gmNa diet as tolerated. Expected Outcomes/Goals Expected Outcomes/Goals 1. PO intake to continue to meet >75% of estimated nutritional needs. 2. Monitor PO intake, wt, nutrition related labs to trend WNL, and skin integrity. 3. F/U as low risk in 7-10 days, 09/29-10/02
--- NOTE | 2019-09-29 02:42 | Psych Progress Note ---
Psych Progress Note - Intro Date of Progress Note: 09/27/19 - Assessment Assessment: Patient interviewed, case discussed with staff, chart and records were reviewed. Patient is restless but redirectable. COnfused/disorganized not able to participate in interview. Rambling speech which is largely incoherent. No med side effects noted. No agitation noted. Requires staff assistance and redirection. Has no plan for self care at this time. - Vitals, I&O Vitals: Vital Signs - 24 hr 09/28/19 09/28/19 09/28/19 06:22 08:00 14:00 Temp 97.6 F 97.0 F HR 74 61 RR 20 18 20 BP 151/75 130/63 O2 Sat % 93 99 09/28/19 20:37 Temp 98.6 F HR 67 RR 19 BP 145/68 O2 Sat % 99 - Objective Psych Objective: presents restless, poor cooperation, mumbled incoherent speech, A&O x 1, insight is poor, no SI/HI, +disorganized, +internally pre-occupied - Plan Plan: cont med titration. - Review of Relevant Data Review of Relevant Data: I have reviewed the following items and time octavio (where applicable) has been applied. - Medications Current Medications: Current Medications Acetaminophen (Tylenol) 650 mg PO Q4H PRN PRN Reason: Mild Pain (Scale 1-3) Stop: 11/15/19 22:45 Acetaminophen (Tylenol) 650 mg PO Q4H PRN PRN Reason: TEMP ABOVE 100 Stop: 11/21/19 14:57 Al Hydrox/Mg Hydrox/Simethicone (Maalox) 30 ml PO Q4H PRN PRN Reason: GI DISTRESS Stop: 11/15/19 22:45 Docusate Sodium (Colace) 100 mg PO BID [facility] Stop: 11/16/19 08:59 Last Admin: 09/28/19 16:50 Dose: 100 mg Lorazepam (Ativan) 0.5 mg PO Q4HR PRN; Protocol PRN Reason: anxiety Stop: 11/23/19 10:57 Magnesium Hydroxide (Milk Of Magnesia) 30 ml PO HS PRN PRN Reason: Constipation Stop: 11/15/19 22:58 Memantine (Namenda) 10 mg PO DAILY [facility] Stop: 11/24/19 08:59 Last Admin: 09/28/19 09:24 Dose: 10 mg Quetiapine Fumarate (Seroquel) 50 mg PO HS JOSE; Protocol Stop: 11/24/19 20:59 Last Admin: 09/28/19 21:18 Dose: 50 mg Zolpidem Tartrate (Ambien) 5 mg PO HS PRN PRN Reason: Insomnia Stop: 11/23/19 11:00
--- NOTE | 2019-09-29 02:43 | Psych Progress Note ---
Psych Progress Note - Intro Date of Progress Note: 09/28/19 - Assessment Assessment: Patient interviewed, case discussed with staff, chart and records were reviewed. Patient is less anxious and less agitated more easily redirectable. sleep and appetite are stable. no med side effects. remains disorganized and has no plan for self care. - Vitals, I&O Vitals: Vital Signs - 24 hr 09/28/19 09/28/19 09/28/19 06:22 08:00 14:00 Temp 97.6 F 97.0 F HR 74 61 RR 20 18 20 BP 151/75 130/63 O2 Sat % 93 99 09/28/19 20:37 Temp 98.6 F HR 67 RR 19 BP 145/68 O2 Sat % 99 - Objective Psych Objective: presents restless, poor cooperation, mumbled incoherent speech, A&O x 1, insight is poor, no SI/HI, +disorganized, +internally pre-occupied - Plan Plan: cont med titration. - Review of Relevant Data Review of Relevant Data: I have reviewed the following items and time octavio (where applicable) has been applied. - Medications Current Medications: Current Medications Acetaminophen (Tylenol) 650 mg PO Q4H PRN PRN Reason: Mild Pain (Scale 1-3) Stop: 11/15/19 22:45 Acetaminophen (Tylenol) 650 mg PO Q4H PRN PRN Reason: TEMP ABOVE 100 Stop: 11/21/19 14:57 Al Hydrox/Mg Hydrox/Simethicone (Maalox) 30 ml PO Q4H PRN PRN Reason: GI DISTRESS Stop: 11/15/19 22:45 Docusate Sodium (Colace) 100 mg PO BID [facility] Stop: 11/16/19 08:59 Last Admin: 09/28/19 16:50 Dose: 100 mg Lorazepam (Ativan) 0.5 mg PO Q4HR PRN; Protocol PRN Reason: anxiety Stop: 11/23/19 10:57 Magnesium Hydroxide (Milk Of Magnesia) 30 ml PO HS PRN PRN Reason: Constipation Stop: 11/15/19 22:58 Memantine (Namenda) 10 mg PO DAILY [facility] Stop: 11/24/19 08:59 Last Admin: 09/28/19 09:24 Dose: 10 mg Quetiapine Fumarate (Seroquel) 50 mg PO HS [facility]; Protocol Stop: 11/24/19 20:59 Last Admin: 09/28/19 21:18 Dose: 50 mg Zolpidem Tartrate (Ambien) 5 mg PO HS PRN PRN Reason: Insomnia Stop: 11/23/19 11:00
[2019-09-29] MEDS: Multivitamin w/ Minerals Tab PO SCH (08:53)
--- NOTE | 2019-09-29 14:25 | Internal Medicine Prog Note ---
Internal Medicine Subjective - Subjective Service Date: 09/29/19 Patient seen and examined:: with staff Patient is:: awake, verbal, troy chair, agitated, confused Patient Complaints of:: other (Dementia.) Per staff patient has:: no adverse event, no episodes of fall, tolerating meds Internal Medicine Objective - Physical Exam Vitals and I&O: Vital Signs Temp 97.8 F 09/29/19 06:43 Pulse 67 09/29/19 06:43 Resp 19 09/29/19 06:43 BP 136/74 09/29/19 06:43 Pulse Ox 97 09/29/19 06:43 Intake & Output 09/28/19 09/29/19 09/29/19 18:59 06:59 18:59 Intake Total 850 480 Output Total 1 Balance 850 479 Intake: Oral 850 480 Output: Urine/Stool Mix 1 Other: # Voids 1 Active Medications: Current Medications Acetaminophen (Tylenol) 650 mg PO Q4H PRN PRN Reason: Mild Pain (Scale 1-3) Stop: 11/15/19 22:45 Acetaminophen (Tylenol) 650 mg PO Q4H PRN PRN Reason: TEMP ABOVE 100 Stop: 11/21/19 14:57 Al Hydrox/Mg Hydrox/Simethicone (Maalox) 30 ml PO Q4H PRN PRN Reason: GI DISTRESS Stop: 11/15/19 22:45 Docusate Sodium (Colace) 100 mg PO BID JOSE Stop: 11/16/19 08:59 Last Admin: 09/29/19 08:53 Dose: 100 mg Lorazepam (Ativan) 0.5 mg PO Q4HR PRN; Protocol PRN Reason: anxiety Stop: 11/23/19 10:57 Magnesium Hydroxide (Milk Of Magnesia) 30 ml PO HS PRN PRN Reason: Constipation Stop: 11/15/19 22:58 Memantine (Namenda) 10 mg PO DAILY JOSE Stop: 11/24/19 08:59 Last Admin: 09/29/19 08:54 Dose: 10 mg Quetiapine Fumarate (Seroquel) 50 mg PO HS JOSE; Protocol Stop: 11/24/19 20:59 Last Admin: 09/28/19 21:18 Dose: 50 mg Zolpidem Tartrate (Ambien) 5 mg PO HS PRN PRN Reason: Insomnia Stop: 11/23/19 11:00 Physical Exam: 84 y/o male patient needs close monitoring, has poor coordination, very dis- organized and confused. General: alert, NAD HEENT: NC/AT, PERRLA Neck: Supple, No JVD Lungs: other (no acute respiratory distress) Cardiovascular: RRR Abdomen: soft, non-tender, non-distended Extremities: clear Neurological: alert Internal Medicine Assmt/Plan - Assessment Assessment: 5150 Hold. Psychosis. Anxiety. Dementia moderate to severe. History of Degenerative joint disease. History of Acute renal failure. History of Osteoarthritis. - Plan Plan: Continuation of care. Monitor vitals and labs. Monitor diet/nutritional support. Continue present meds as directed. Supportive care. Pain management. Psych management as per Psych. Continue current treatment plan as ordered. Nutritional Asmnt/Malnutr-PDOC - Dietary Evaluation Malnutrition Findings (Please click <Entered> for more info): Nutritional Asmnt/Malnutrition Start: 09/22/19 15: 48 Text: Status: Complete Freq: Protocol: Document 09/22/19 15:48 CHITO (Rec: 09/22/19 15:51 CHITO [email or web address]) Nutritional Asmnt/Malnutrition Patient General Information Nutritional Screening Moderate Risk Diagnosis Psychosis Pertinent Medical Hx/Surgical Hx No reported medical Hx per H & P Report. Subjective Information Pt is an 84-year-old male admitted on 09/16 d/t 5150 hold for grave disability. Admitted following medical clearance from [facility] for increased aggressive behavior, striking out, and agitation. Pt is eating an estimated 90% of meals Per Meal/Nutrition Activity Record. Dietary is currently providing an estimated 1860 kcals and 50 gm Pro, per Pt PO intake this is providing an estimated 1675 kcals and 45gm Pro to meet 93% kcal and 100% Pro needs- adequate. Anthropometrics HT: 58 WT: 135 LB (61.36 kg) BMI: 20.53 (Normal) GI/ Skin Integrity GI: WNL, Non-tender BM: 09/21 x1 I/O: 1300/Not Noted Skin: WNL, Intact Wesley: 15 Diet Order: Renal, 2gmNa Estimated Energy Needs: (Renal , CBW) 1644-2558 kcals (28-30 kcals/ kg) 46-50g Pro (0.75-0.8 g/kg) 5828-2657 ml (28-30 ml/kg) Current Diet Order/ Nutrition Support Renal, 2gmNa Pertinent Medications Maalox (PRN), Colace, MOM (PRN ) Pertinent Labs 09/17: LDL 102, A1c 5.4 % 09/12: Hgb/Hct 12.2/35.7, Ca 8. 1, BUN/Cr 24/1.11, ALk Phos 142, T Protein 5.6, Alb 3.0 Nutritional Hx/Data Height 1.73 m Height (Calculated Centimeters) 172.7 Current Weight (lbs) 61.235 kg Weight (Calculated Kilograms) 61.2 Weight (Calculated Grams) 79541.0 [place] Body Weight 154 LB (70 kg) % [place] Body Weight 88 Body Mass Index (BMI) 20.5 Weight Status Approriate GI Symptoms GI Symptoms None Last BM 09/21 x1 Skin Integrity/Comment: Skin: WNL, Intact Wesley: 15 Current %PO Good (75-100%) Estimated Nutritional Goals BEE in Kcals: Using Current wt Calories/Kcals/Kg 28-30 Kcals Calculated 1639-0359 Protein: Using Current wt Protein g/k.75-0.8 Protein Calculated 46-50 Fluid: ml 6942-0923 ml (28-30 ml/kg) Nutritional Problem 1. Problem Problem Altered nutrition related labs Etiology r/t renal dysfunction Signs/Symptoms: aeb (09/12) BUN/Cr 24/1.11, ALk Phos 142, T Protein 5.6, Alb 3.0. Malnutrition Related to Morbid Obesity Malnutrition related to morbid obesity No Intervention/Recommendation Comments Continue Renal, 2gmNa diet as tolerated. Expected Outcomes/Goals Expected Outcomes/Goals 1. PO intake to continue to meet >75% of estimated nutritional needs. 2. Monitor PO intake, wt, nutrition related labs to trend WNL, and skin integrity. 3. F/U as low risk in 7-10 days, 09/29-10/02
[2019-09-29] MEDS ORDERED: Maalox 30 mL Cup PO PRN (19:30)
[2019-09-29] MEDS ORDERED: Non-Formulary Item 1 EA (Melatonin [Melatonin] 5 MG) PO SCH (21:00)
--- NOTE | 2019-09-30 08:58 | Progress Notes ---
DATE: 09/29/2019 SUBJECTIVE: An 84-year-old male, coming currently from [facility] in [place]; confusion, forgetfulness, increased aggressive behaviors and because of worsening aggression, mood swings, temperamental. On [id number] the patient is irritable, not wanting to talk to me right now, not really engaging during the [id number]. Dr. Harris had seen the patient yesterday, noted to be somewhat anxious and agitated, but less so; more redirectable. Poor orientation. Staff noting confused, disorganized, but less anxious, less aggressive. Fair sleep, fair appetite. Medications were noted. PLAN: We will continue to monitor ongoing concerns about poor impulse control. [facility]# [id number]
[2019-09-30] MEDS: Multivitamin w/ Minerals Tab PO SCH (09:28)
--- NOTE | 2019-09-30 18:30 | Internal Medicine Prog Note ---
Internal Medicine Subjective - Subjective Service Date: 09/30/19 Patient is:: awake, verbal, troy chair, agitated, confused Patient Complaints of:: other (Dementia.) Per staff patient has:: no adverse event, no episodes of fall, tolerating meds Internal Medicine Objective - Physical Exam Vitals and I&O: Vital Signs Temp 97.6 F 09/30/19 14:00 Pulse 85 09/30/19 14:00 Resp 20 09/30/19 14:00 BP 107/77 09/30/19 14:00 Pulse Ox 95 09/30/19 14:00 Intake & Output 09/29/19 09/30/19 09/30/19 18:59 06:59 18:59 Intake Total 1000 1200 Balance 1000 1200 Intake: Oral 1000 1200 Other: # Voids 4 3 # Bowel Movements 1 0 Active Medications: Current Medications Acetaminophen (Tylenol) 650 mg PO Q4H PRN PRN Reason: Mild Pain (Scale 1-3) Stop: 11/15/19 22:45 Acetaminophen (Tylenol) 650 mg PO Q4H PRN PRN Reason: TEMP ABOVE 100 Stop: 11/28/19 19:29 Al Hydrox/Mg Hydrox/Simethicone (Maalox) 30 ml PO Q4HR PRN PRN Reason: GI DISTRESS Stop: 11/28/19 19:29 Docusate Sodium (Colace) 100 mg PO BID JOSE Stop: 11/29/19 08:59 Last Admin: 09/30/19 17:48 Dose: 100 mg Hydroxyzine HCl (Atarax) 10 mg PO HS JOSE; Protocol Stop: 11/28/19 20:59 Last Admin: 09/29/19 20:44 Dose: 10 mg Lorazepam (Ativan) 0.5 mg PO Q4HR PRN; Protocol PRN Reason: anxiety Stop: 11/23/19 10:57 Magnesium Hydroxide (Milk Of Magnesia) 30 ml PO HS PRN PRN Reason: Constipation Stop: 11/15/19 22:58 Memantine (Namenda) 10 mg PO BID JOSE Stop: 11/29/19 08:59 Last Admin: 09/30/19 17:48 Dose: 10 mg Quetiapine Fumarate (Seroquel) 50 mg PO HS JOSE; Protocol Stop: 11/24/19 20:59 Last Admin: 09/29/19 20:45 Dose: 50 mg Zolpidem Tartrate (Ambien) 5 mg PO HS PRN PRN Reason: Insomnia Stop: 11/23/19 11:00 General: alert, NAD HEENT: NC/AT, PERRLA Neck: Supple, No JVD Lungs: other (no acute respiratory distress) Cardiovascular: RRR Abdomen: soft, non-tender, non-distended Extremities: clear Neurological: alert Internal Medicine Assmt/Plan - Assessment Assessment: 5150 Hold. Psychosis. Anxiety. Dementia moderate to severe. History of Degenerative joint disease. History of Acute renal failure. History of Osteoarthritis. - Plan Plan: Continuation of care. Monitor vitals and labs. Monitor diet/nutritional support. Continue present meds as directed. Supportive care. Pain management. Psych management as per Psych. Continue current treatment plan as ordered. Nutritional Asmnt/Malnutr-PDOC - Dietary Evaluation Malnutrition Findings (Please click <Entered> for more info): Nutritional Asmnt/Malnutrition Start: 09/22/19 15: 48 Text: Status: Complete Freq: Protocol: Document 09/22/19 15:48 CHITO (Rec: 09/22/19 15:51 CHITO [email or web address]) Nutritional Asmnt/Malnutrition Patient General Information Nutritional Screening Moderate Risk Diagnosis Psychosis Pertinent Medical Hx/Surgical Hx No reported medical Hx per H & P Report. Subjective Information Pt is an 84-year-old male admitted on 09/16 d/t 5150 hold for grave disability. Admitted following medical clearance from [facility] for increased aggressive behavior, striking out, and agitation. Pt is eating an estimated 90% of meals Per Meal/Nutrition Activity Record. Dietary is currently providing an estimated 1860 kcals and 50 gm Pro, per Pt PO intake this is providing an estimated 1675 kcals and 45gm Pro to meet 93% kcal and 100% Pro needs- adequate. Anthropometrics HT: 58 WT: 135 LB (61.36 kg) BMI: 20.53 (Normal) GI/ Skin Integrity GI: WNL, Non-tender BM: 09/21 x1 I/O: 1300/Not Noted Skin: WNL, Intact Wesley: 15 Diet Order: Renal, 2gmNa Estimated Energy Needs: (Renal , CBW) 9395-4398 kcals (28-30 kcals/ kg) 46-50g Pro (0.75-0.8 g/kg) 3652-6536 ml (28-30 ml/kg) Current Diet Order/ Nutrition Support Renal, 2gmNa Pertinent Medications Maalox (PRN), Colace, MOM (PRN ) Pertinent Labs 09/17: LDL 102, A1c 5.4 % 09/12: Hgb/Hct 12.2/35.7, Ca 8. 1, BUN/Cr 24/1.11, ALk Phos 142, T Protein 5.6, Alb 3.0 Nutritional Hx/Data Height 5 ft 8 in Height (Calculated Centimeters) 172.7 Current Weight (lbs) 135 lb Weight (Calculated Kilograms) 61.2 Weight (Calculated Grams) 60082.0 [place] Body Weight 154 LB (70 kg) % [place] Body Weight 88 Body Mass Index (BMI) 20.5 Weight Status Approriate GI Symptoms GI Symptoms None Last BM 09/21 x1 Skin Integrity/Comment: Skin: WNL, Intact Wesley: 15 Current %PO Good (75-100%) Estimated Nutritional Goals BEE in Kcals: Using Current wt Calories/Kcals/Kg 28-30 Kcals Calculated 6714-3268 Protein: Using Current wt Protein g/k.75-0.8 Protein Calculated 46-50 Fluid: ml 5365-9938 ml (28-30 ml/kg) Nutritional Problem 1. Problem Problem Altered nutrition related labs Etiology r/t renal dysfunction Signs/Symptoms: aeb (09/12) BUN/Cr 24/1.11, ALk Phos 142, T Protein 5.6, Alb 3.0. Malnutrition Related to Morbid Obesity Malnutrition related to morbid obesity No Intervention/Recommendation Comments Continue Renal, 2gmNa diet as tolerated. Expected Outcomes/Goals Expected Outcomes/Goals 1. PO intake to continue to meet >75% of estimated nutritional needs. 2. Monitor PO intake, wt, nutrition related labs to trend WNL, and skin integrity. 3. F/U as low risk in 7-10 days, 09/29-10/02
--- NOTE | 2019-09-30 21:50 | Progress Notes ---
DATE: 09/30/2019 SUBJECTIVE: Chart was reviewed and the patient interviewed. Also discussed the patient's condition with the staff and reviewed records and labs. The patient is still having episodes of not only agitation and irritability, but he also is still confused. The patient also has a flat affect and still has difficulty following directions from staff, although staff is trying to help him with redirecting him. Also is still, at times, resisting care. Otherwise, the patient has continued to comply with taking Seroquel and Namenda and Ativan with no side effects. ASSESSMENT: The patient is still confused and disoriented. TREATMENT PLAN: Continue to monitor his behavior and his condition closely. Also, continue adjusting psychotropic medications and work on behavioral modification. JOB# [id number]
[2019-10-01] MEDS: Multivitamin w/ Minerals Tab PO SCH (09:56)
--- NOTE | 2019-10-01 14:33 | Internal Medicine Prog Note ---
Internal Medicine Subjective - Subjective Service Date: 10/01/19 Patient is:: awake, verbal, troy chair, agitated, confused Patient Complaints of:: other (Dementia.) Per staff patient has:: no adverse event, no episodes of fall, tolerating meds Internal Medicine Objective - Physical Exam Vitals and I&O: Vital Signs Temp 97.9 F 10/01/19 06:02 Pulse 71 10/01/19 06:02 Resp 18 10/01/19 08:00 BP 170/86 10/01/19 06:02 Pulse Ox 97 10/01/19 06:02 Intake & Output 09/30/19 10/01/19 10/01/19 18:59 06:59 18:59 Intake Total 1200 240 Balance 1200 240 Intake: Oral 1200 240 Other: # Voids 3 3 # Bowel Movements 0 0 Active Medications: Current Medications Acetaminophen (Tylenol) 650 mg PO Q4H PRN PRN Reason: Mild Pain (Scale 1-3) Stop: 11/15/19 22:45 Acetaminophen (Tylenol) 650 mg PO Q4H PRN PRN Reason: TEMP ABOVE 100 Stop: 11/28/19 19:29 Al Hydrox/Mg Hydrox/Simethicone (Maalox) 30 ml PO Q4HR PRN PRN Reason: GI DISTRESS Stop: 11/28/19 19:29 Docusate Sodium (Colace) 100 mg PO BID JOSE Stop: 11/29/19 08:59 Last Admin: 10/01/19 09:56 Dose: 100 mg Hydroxyzine HCl (Atarax) 10 mg PO HS JOSE; Protocol Stop: 11/28/19 20:59 Last Admin: 09/30/19 20:16 Dose: 10 mg Lorazepam (Ativan) 0.5 mg PO Q4HR PRN; Protocol PRN Reason: anxiety Stop: 11/23/19 10:57 Magnesium Hydroxide (Milk Of Magnesia) 30 ml PO HS PRN PRN Reason: Constipation Stop: 11/15/19 22:58 Memantine (Namenda) 10 mg PO BID JOSE Stop: 11/29/19 08:59 Last Admin: 10/01/19 09:56 Dose: 10 mg Quetiapine Fumarate (Seroquel) 62.5 mg PO HS JOSE; Protocol Stop: 11/30/19 20:59 Zolpidem Tartrate (Ambien) 5 mg PO HS PRN PRN Reason: Insomnia Stop: 11/23/19 11:00 General: alert, NAD HEENT: NC/AT, PERRLA Neck: Supple, No JVD Lungs: other (no acute respiratory distress) Cardiovascular: RRR Abdomen: soft, non-tender, non-distended Extremities: clear Neurological: alert Internal Medicine Assmt/Plan - Assessment Assessment: 5150 Hold. Psychosis. Anxiety. Dementia moderate to severe. History of Degenerative joint disease. History of Acute renal failure. History of Osteoarthritis. - Plan Plan: Continuation of care. Monitor vitals and labs. Monitor diet/nutritional support. Continue present meds as directed. Supportive care. Pain management. Psych management as per Psych. Continue current treatment plan as ordered. Nutritional Asmnt/Malnutr-PDOC - Dietary Evaluation Malnutrition Findings (Please click <Entered> for more info): Nutritional Asmnt/Malnutrition Start: 09/22/19 15: 48 Text: Status: Complete Freq: Protocol: Document 09/22/19 15:48 CHITO (Rec: 09/22/19 15:51 CHITO [email or web address]) Nutritional Asmnt/Malnutrition Patient General Information Nutritional Screening Moderate Risk Diagnosis Psychosis Pertinent Medical Hx/Surgical Hx No reported medical Hx per H & P Report. Subjective Information Pt is an 84-year-old male admitted on 09/16 d/t 5150 hold for grave disability. Admitted following medical clearance from [facility] for increased aggressive behavior, striking out, and agitation. Pt is eating an estimated 90% of meals Per Meal/Nutrition Activity Record. Dietary is currently providing an estimated 1860 kcals and 50 gm Pro, per Pt PO intake this is providing an estimated 1675 kcals and 45gm Pro to meet 93% kcal and 100% Pro needs- adequate. Anthropometrics HT: 58 WT: 135 LB (61.36 kg) BMI: 20.53 (Normal) GI/ Skin Integrity GI: WNL, Non-tender BM: 09/21 x1 I/O: 1300/Not Noted Skin: WNL, Intact Wesley: 15 Diet Order: Renal, 2gmNa Estimated Energy Needs: (Renal , CBW) 8797-0702 kcals (28-30 kcals/ kg) 46-50g Pro (0.75-0.8 g/kg) 8845-5166 ml (28-30 ml/kg) Current Diet Order/ Nutrition Support Renal, 2gmNa Pertinent Medications Maalox (PRN), Colace, MOM (PRN ) Pertinent Labs 09/17: LDL 102, A1c 5.4 % 09/12: Hgb/Hct 12.2/35.7, Ca 8. 1, BUN/Cr 24/1.11, ALk Phos 142, T Protein 5.6, Alb 3.0 Nutritional Hx/Data Height 5 ft 8 in Height (Calculated Centimeters) 172.7 Current Weight (lbs) 135 lb Weight (Calculated Kilograms) 61.2 Weight (Calculated Grams) 40717.0 [place] Body Weight 154 LB (70 kg) % [place] Body Weight 88 Body Mass Index (BMI) 20.5 Weight Status Approriate GI Symptoms GI Symptoms None Last BM 09/21 x1 Skin Integrity/Comment: Skin: WNL, Intact Wesley: 15 Current %PO Good (75-100%) Estimated Nutritional Goals BEE in Kcals: Using Current wt Calories/Kcals/Kg 28-30 Kcals Calculated 9431-5699 Protein: Using Current wt Protein g/k.75-0.8 Protein Calculated 46-50 Fluid: ml 0531-3329 ml (28-30 ml/kg) Nutritional Problem 1. Problem Problem Altered nutrition related labs Etiology r/t renal dysfunction Signs/Symptoms: aeb (09/12) BUN/Cr 24/1.11, ALk Phos 142, T Protein 5.6, Alb 3.0. Malnutrition Related to Morbid Obesity Malnutrition related to morbid obesity No Intervention/Recommendation Comments Continue Renal, 2gmNa diet as tolerated. Expected Outcomes/Goals Expected Outcomes/Goals 1. PO intake to continue to meet >75% of estimated nutritional needs. 2. Monitor PO intake, wt, nutrition related labs to trend WNL, and skin integrity. 3. F/U as low risk in 7-10 days, 09/29-10/02
--- NOTE | 2019-10-01 21:02 | Progress Notes ---
DATE: 10/01/2019 SUBJECTIVE: Chart was reviewed and the patient interviewed. Also discussed the patient's condition with the staff and reviewed records and labs. The patient is still confused and is still oriented to self and name only. Also, still seems to be preoccupied and is severely anxious. The patient also still has episodes of taking his gown off, but it seems to be also less than before. Easier to follow directions, but he still seems to be preoccupied and is still suspicious. Otherwise, the patient is compliant with taking his medications with no side effects of medications. ASSESSMENT: The patient is still agitated and psychotic. TREATMENT PLAN: Continue to monitor his behavior and his condition closely. Also, we will increase Seroquel to 62.5 mg at bedtime and we will continue to follow up. JOB# [id number]
[2019-10-02] MEDS: Multivitamin w/ Minerals Tab PO SCH (09:43)
--- NOTE | 2019-10-02 12:30 | Internal Medicine Prog Note ---
Internal Medicine Subjective - Subjective Service Date: 10/02/19 Patient is:: awake, verbal, troy chair, agitated, confused Patient Complaints of:: other (Dementia.) Per staff patient has:: no adverse event, no episodes of fall, tolerating meds Internal Medicine Objective - Physical Exam Vitals and I&O: Vital Signs Temp 98.2 F 10/02/19 06:51 Pulse 74 10/02/19 06:51 Resp 18 10/02/19 08:00 BP 148/87 10/02/19 06:51 Pulse Ox 98 10/02/19 06:51 Intake & Output 10/01/19 10/02/19 10/02/19 18:59 06:59 18:59 Intake Total 800 240 Balance 800 240 Intake: Oral 800 240 Other: # Voids 3 2 # Bowel Movements 1 0 Stool Characteristics Soft Active Medications: Current Medications Acetaminophen (Tylenol) 650 mg PO Q4H PRN PRN Reason: Mild Pain (Scale 1-3) Stop: 11/15/19 22:45 Acetaminophen (Tylenol) 650 mg PO Q4H PRN PRN Reason: TEMP ABOVE 100 Stop: 11/28/19 19:29 Al Hydrox/Mg Hydrox/Simethicone (Maalox) 30 ml PO Q4HR PRN PRN Reason: GI DISTRESS Stop: 11/28/19 19:29 Docusate Sodium (Colace) 100 mg PO BID JOSE Stop: 11/29/19 08:59 Last Admin: 10/02/19 09:43 Dose: 100 mg Hydroxyzine HCl (Atarax) 10 mg PO HS JOSE; Protocol Stop: 11/28/19 20:59 Last Admin: 10/01/19 21:19 Dose: 10 mg Lorazepam (Ativan) 0.5 mg PO Q4HR PRN; Protocol PRN Reason: anxiety Stop: 11/23/19 10:57 Magnesium Hydroxide (Milk Of Magnesia) 30 ml PO HS PRN PRN Reason: Constipation Stop: 11/15/19 22:58 Memantine (Namenda) 10 mg PO BID JOSE Stop: 11/29/19 08:59 Last Admin: 10/02/19 09:43 Dose: 10 mg Quetiapine Fumarate (Seroquel) 62.5 mg PO HS JOSE; Protocol Stop: 11/30/19 20:59 Last Admin: 10/01/19 21:22 Dose: 62.5 mg Zolpidem Tartrate (Ambien) 5 mg PO HS PRN PRN Reason: Insomnia Stop: 11/23/19 11:00 General: alert, NAD HEENT: NC/AT, PERRLA Neck: Supple, No JVD Lungs: other (no acute respiratory distress) Cardiovascular: RRR Abdomen: soft, non-tender, non-distended Extremities: clear Neurological: alert Internal Medicine Assmt/Plan - Assessment Assessment: 5149 Hold. Psychosis. Anxiety. Dementia moderate to severe. History of Degenerative joint disease. History of Acute renal failure. History of Osteoarthritis. - Plan Plan: Continuation of care. Monitor vitals and labs. Monitor diet/nutritional support. Continue present meds as directed. Supportive care. Pain management. Psych management as per Psych. Continue current treatment plan as ordered. Nutritional Asmnt/Malnutr-PDOC - Dietary Evaluation Malnutrition Findings (Please click <Entered> for more info): Nutritional Asmnt/Malnutrition Start: 09/22/19 15: 48 Text: Status: Complete Freq: Protocol: Document 09/22/19 15:48 CHITO (Rec: 09/22/19 15:51 CHITO [email or web address]) Nutritional Asmnt/Malnutrition Patient General Information Nutritional Screening Moderate Risk Diagnosis Psychosis Pertinent Medical Hx/Surgical Hx No reported medical Hx per H & P Report. Subjective Information Pt is an 84-year-old male admitted on 09/16 d/t 5150 hold for grave disability. Admitted following medical clearance from [facility] for increased aggressive behavior, striking out, and agitation. Pt is eating an estimated 90% of meals Per Meal/Nutrition Activity Record. Dietary is currently providing an estimated 1860 kcals and 50 gm Pro, per Pt PO intake this is providing an estimated 1675 kcals and 45gm Pro to meet 93% kcal and 100% Pro needs- adequate. Anthropometrics HT: 58 WT: 135 LB (61.36 kg) BMI: 20.53 (Normal) GI/ Skin Integrity GI: WNL, Non-tender BM: 09/21 x1 I/O: 1300/Not Noted Skin: WNL, Intact Wesley: 15 Diet Order: Renal, 2gmNa Estimated Energy Needs: (Renal , CBW) 9386-9267 kcals (28-30 kcals/ kg) 46-50g Pro (0.75-0.8 g/kg) 1135-3442 ml (28-30 ml/kg) Current Diet Order/ Nutrition Support Renal, 2gmNa Pertinent Medications Maalox (PRN), Colace, MOM (PRN ) Pertinent Labs 09/17: LDL 102, A1c 5.4 % 09/12: Hgb/Hct 12.2/35.7, Ca 8. 1, BUN/Cr 24/1.11, ALk Phos 142, T Protein 5.6, Alb 3.0 Nutritional Hx/Data Height 5 ft 8 in Height (Calculated Centimeters) 172.7 Current Weight (lbs) 135 lb Weight (Calculated Kilograms) 61.2 Weight (Calculated Grams) 87828.0 [place] Body Weight 154 LB (70 kg) % [place] Body Weight 88 Body Mass Index (BMI) 20.5 Weight Status Approriate GI Symptoms GI Symptoms None Last BM 09/21 x1 Skin Integrity/Comment: Skin: WNL, Intact Wesley: 15 Current %PO Good (75-100%) Estimated Nutritional Goals BEE in Kcals: Using Current wt Calories/Kcals/Kg 28-30 Kcals Calculated 3327-7659 Protein: Using Current wt Protein g/k.75-0.8 Protein Calculated 46-50 Fluid: ml 1302-4557 ml (28-30 ml/kg) Nutritional Problem 1. Problem Problem Altered nutrition related labs Etiology r/t renal dysfunction Signs/Symptoms: aeb (09/12) BUN/Cr 24/1.11, ALk Phos 142, T Protein 5.6, Alb 3.0. Malnutrition Related to Morbid Obesity Malnutrition related to morbid obesity No Intervention/Recommendation Comments Continue Renal, 2gmNa diet as tolerated. Expected Outcomes/Goals Expected Outcomes/Goals 1. PO intake to continue to meet >75% of estimated nutritional needs. 2. Monitor PO intake, wt, nutrition related labs to trend WNL, and skin integrity. 3. F/U as low risk in 7-10 days, 09/29-10/02
--- NOTE | 2019-10-02 21:31 | Progress Notes ---
DATE: 10/02/2019 SUBJECTIVE: Chart reviewed and the patient interviewed. Also discussed the patient's condition with the staff and reviewed records and labs. The patient is confused and he is still agitated and in irritable mood. The patient also is still suspicious and is still paranoid. He also still has mood swings and is still preoccupied with difficulty following directions. Otherwise, the patient is compliant with taking his medications with no side effects of medications. ASSESSMENT: The patient is still agitated. TREATMENT PLAN: Continue to monitor behavior and condition closely. Also, continue to work on his agitation and irritability and continue to follow up closely. [facility]# [id number]
[2019-10-03] MEDS: Multivitamin w/ Minerals Tab PO SCH (08:13)
--- NOTE | 2019-10-03 08:50 | Internal Medicine Prog Note ---
Internal Medicine Subjective - Subjective Patient is:: asleep, verbal, arousable, in bed, confused Patient Complaints of:: other (Dementia.) Per staff patient has:: no adverse event, no episodes of fall, tolerating meds Internal Medicine Objective - Physical Exam Vitals and I&O: Vital Signs Temp 97.3 F 10/03/19 06:46 Pulse 73 10/03/19 06:46 Resp 20 10/03/19 06:46 BP 155/70 10/03/19 06:46 Pulse Ox 97 10/03/19 06:46 Intake & Output 10/02/19 10/03/19 10/03/19 18:59 06:59 18:59 Intake Total 1200 300 Balance 1200 300 Intake: Oral 1200 300 Other: # Voids 2 # Bowel Movements 1 0 Stool Characteristics Soft Active Medications: Current Medications Acetaminophen (Tylenol) 650 mg PO Q4H PRN PRN Reason: Mild Pain (Scale 1-3) Stop: 11/15/19 22:45 Acetaminophen (Tylenol) 650 mg PO Q4H PRN PRN Reason: TEMP ABOVE 100 Stop: 11/28/19 19:29 Al Hydrox/Mg Hydrox/Simethicone (Maalox) 30 ml PO Q4HR PRN PRN Reason: GI DISTRESS Stop: 11/28/19 19:29 Docusate Sodium (Colace) 100 mg PO BID JOSE Stop: 11/29/19 08:59 Last Admin: 10/03/19 08:13 Dose: 100 mg Hydroxyzine HCl (Atarax) 10 mg PO HS JOSE; Protocol Stop: 11/28/19 20:59 Last Admin: 10/02/19 20:46 Dose: 10 mg Lorazepam (Ativan) 0.5 mg PO Q4HR PRN; Protocol PRN Reason: anxiety Stop: 11/23/19 10:57 Magnesium Hydroxide (Milk Of Magnesia) 30 ml PO HS PRN PRN Reason: Constipation Stop: 11/15/19 22:58 Memantine (Namenda) 10 mg PO BID JOSE Stop: 11/29/19 08:59 Last Admin: 10/03/19 08:13 Dose: 10 mg Quetiapine Fumarate (Seroquel) 62.5 mg PO HS JOSE; Protocol Stop: 11/30/19 20:59 Last Admin: 10/02/19 20:45 Dose: 62.5 mg Zolpidem Tartrate (Ambien) 5 mg PO HS PRN PRN Reason: Insomnia Stop: 11/23/19 11:00 Last Admin: 10/02/19 20:46 Dose: 5 mg General: alert, NAD HEENT: NC/AT, PERRLA Neck: Supple, No JVD Lungs: other (no acute respiratory distress) Cardiovascular: RRR Abdomen: soft, non-tender, non-distended Extremities: clear Neurological: alert Internal Medicine Assmt/Plan - Assessment Assessment: 5150 Hold. Psychosis. Anxiety. Dementia moderate to severe. History of Degenerative joint disease. History of Acute renal failure. History of Osteoarthritis. - Plan Plan: Continue current treatment plan. Monitor Labs Continue current medications Continue to monitor VS Monitor Diet/Nutritional support. Psych management per Psychiatry. Pain Management. PT/OT prnSafety precaution, Fall precaution, frequent nursing round. Supportive care. Continue collaborating with consulting specialists, case management and nursing team Nutritional Asmnt/Malnutr-PDOC - Dietary Evaluation Malnutrition Findings (Please click <Entered> for more info): Nutritional Asmnt/Malnutrition Start: 09/22/19 15: 48 Text: Status: Complete Freq: Protocol: Document 09/22/19 15:48 CHITO (Rec: 09/22/19 15:51 [email or web address] [email or web address]) Nutritional Asmnt/Malnutrition Patient General Information Nutritional Screening Moderate Risk Diagnosis Psychosis Pertinent Medical Hx/Surgical Hx No reported medical Hx per H & P Report. Subjective Information Pt is an 84-year-old male admitted on 09/16 d/t 5150 hold for grave disability. Admitted following medical clearance from [facility] for increased aggressive behavior, striking out, and agitation. Pt is eating an estimated 90% of meals Per Meal/Nutrition Activity Record. Dietary is currently providing an estimated 1860 kcals and 50 gm Pro, per Pt PO intake this is providing an estimated 1675 kcals and 45gm Pro to meet 93% kcal and 100% Pro needs- adequate. Anthropometrics HT: 58 WT: 135 LB (61.36 kg) BMI: 20.53 (Normal) GI/ Skin Integrity GI: WNL, Non-tender BM: 09/21 x1 I/O: 1300/Not Noted Skin: WNL, Intact Wesley: 15 Diet Order: Renal, 2gmNa Estimated Energy Needs: (Renal , CBW) 1680-4389 kcals (28-30 kcals/ kg) 46-50g Pro (0.75-0.8 g/kg) 6773-5960 ml (28-30 ml/kg) Current Diet Order/ Nutrition Support Renal, 2gmNa Pertinent Medications Maalox (PRN), Colace, MOM (PRN ) Pertinent Labs 09/17: LDL 102, A1c 5.4 % 09/12: Hgb/Hct 12.2/35.7, Ca 8. 1, BUN/Cr 24/1.11, ALk Phos 142, T Protein 5.6, Alb 3.0 Nutritional Hx/Data Height 5 ft 8 in Height (Calculated Centimeters) 172.7 Current Weight (lbs) 135 lb Weight (Calculated Kilograms) 61.2 Weight (Calculated Grams) 88725.0 [place] Body Weight 154 LB (70 kg) % [place] Body Weight 88 Body Mass Index (BMI) 20.5 Weight Status Approriate GI Symptoms GI Symptoms None Last BM 09/21 x1 Skin Integrity/Comment: Skin: WNL, Intact Wesley: 15 Current %PO Good (75-100%) Estimated Nutritional Goals BEE in Kcals: Using Current wt Calories/Kcals/Kg 28-30 Kcals Calculated 4641-3061 Protein: Using Current wt Protein g/k.75-0.8 Protein Calculated 46-50 Fluid: ml 0341-4597 ml (28-30 ml/kg) Nutritional Problem 1. Problem Problem Altered nutrition related labs Etiology r/t renal dysfunction Signs/Symptoms: aeb (09/12) BUN/Cr 24/1.11, ALk Phos 142, T Protein 5.6, Alb 3.0. Malnutrition Related to Morbid Obesity Malnutrition related to morbid obesity No Intervention/Recommendation Comments Continue Renal, 2gmNa diet as tolerated. Expected Outcomes/Goals Expected Outcomes/Goals 1. PO intake to continue to meet >75% of estimated nutritional needs. 2. Monitor PO intake, wt, nutrition related labs to trend WNL, and skin integrity. 3. F/U as low risk in 7-10 days, 09/29-10/02
--- NOTE | 2019-10-03 11:48 | Internal Medicine Prog Note ---
Internal Medicine Subjective - Subjective Service Date: 10/03/19 Patient seen and examined:: with staff Patient is:: asleep, verbal, arousable, in bed, confused Patient Complaints of:: other (Dementia.) Per staff patient has:: no adverse event, no episodes of fall, tolerating meds Internal Medicine Objective - Physical Exam Vitals and I&O: Vital Signs Temp 97.3 F 10/03/19 06:46 Pulse 73 10/03/19 06:46 Resp 20 10/03/19 06:46 BP 155/70 10/03/19 06:46 Pulse Ox 97 10/03/19 06:46 Intake & Output 10/02/19 10/03/19 10/03/19 18:59 06:59 18:59 Intake Total 1200 300 Balance 1200 300 Intake: Oral 1200 300 Other: # Voids 2 # Bowel Movements 1 0 Stool Characteristics Soft Active Medications: Current Medications Acetaminophen (Tylenol) 650 mg PO Q4H PRN PRN Reason: Mild Pain (Scale 1-3) Stop: 11/15/19 22:45 Acetaminophen (Tylenol) 650 mg PO Q4H PRN PRN Reason: TEMP ABOVE 100 Stop: 11/28/19 19:29 Al Hydrox/Mg Hydrox/Simethicone (Maalox) 30 ml PO Q4HR PRN PRN Reason: GI DISTRESS Stop: 11/28/19 19:29 Docusate Sodium (Colace) 100 mg PO BID JOSE Stop: 11/29/19 08:59 Last Admin: 10/03/19 08:13 Dose: 100 mg Hydroxyzine HCl (Atarax) 10 mg PO HS JOSE; Protocol Stop: 11/28/19 20:59 Last Admin: 10/02/19 20:46 Dose: 10 mg Lorazepam (Ativan) 0.5 mg PO Q4HR PRN; Protocol PRN Reason: anxiety Stop: 11/23/19 10:57 Magnesium Hydroxide (Milk Of Magnesia) 30 ml PO HS PRN PRN Reason: Constipation Stop: 11/15/19 22:58 Memantine (Namenda) 10 mg PO BID JOSE Stop: 11/29/19 08:59 Last Admin: 10/03/19 08:13 Dose: 10 mg Quetiapine Fumarate (Seroquel) 62.5 mg PO HS JOSE; Protocol Stop: 11/30/19 20:59 Last Admin: 10/02/19 20:45 Dose: 62.5 mg Zolpidem Tartrate (Ambien) 5 mg PO HS PRN PRN Reason: Insomnia Stop: 11/23/19 11:00 Last Admin: 10/02/19 20:46 Dose: 5 mg Physical Exam: 84 y/o male patient needs close monitoring, remains very paranoid and hostile. General: alert, NAD HEENT: NC/AT, PERRLA Neck: Supple, No JVD Lungs: other (no acute respiratory distress) Cardiovascular: RRR Abdomen: soft, non-tender, non-distended Extremities: clear Neurological: alert Internal Medicine Assmt/Plan - Assessment Assessment: 5149 Hold. Psychosis. Anxiety. Dementia moderate to severe. History of Degenerative joint disease. History of Acute renal failure. History of Osteoarthritis. - Plan Plan: Continuation of care. Monitor vitals and labs. Monitor diet/nutritional support. Continue present meds as directed. Supportive care. Pain management. Psych management as per Psych. Continue current treatment plan as ordered. Nutritional Asmnt/Malnutr-PDOC - Dietary Evaluation Malnutrition Findings (Please click <Entered> for more info): Nutritional Asmnt/Malnutrition Start: 09/22/19 15: 48 Text: Status: Complete Freq: Protocol: Document 09/22/19 15:48 CHITO (Rec: 09/22/19 15:51 CHITO [email or web address]) Nutritional Asmnt/Malnutrition Patient General Information Nutritional Screening Moderate Risk Diagnosis Psychosis Pertinent Medical Hx/Surgical Hx No reported medical Hx per H & P Report. Subjective Information Pt is an 84-year-old male admitted on 09/16 d/t 5150 hold for grave disability. Admitted following medical clearance from [facility] for increased aggressive behavior, striking out, and agitation. Pt is eating an estimated 90% of meals Per Meal/Nutrition Activity Record. Dietary is currently providing an estimated 1860 kcals and 50 gm Pro, per Pt PO intake this is providing an estimated 1675 kcals and 45gm Pro to meet 93% kcal and 100% Pro needs- adequate. Anthropometrics HT: 58 WT: 135 LB (61.36 kg) BMI: 20.53 (Normal) GI/ Skin Integrity GI: WNL, Non-tender BM: 09/21 x1 I/O: 1300/Not Noted Skin: WNL, Intact Wesley: 15 Diet Order: Renal, 2gmNa Estimated Energy Needs: (Renal , CBW) 4020-2901 kcals (28-30 kcals/ kg) 46-50g Pro (0.75-0.8 g/kg) 3390-9404 ml (28-30 ml/kg) Current Diet Order/ Nutrition Support Renal, 2gmNa Pertinent Medications Maalox (PRN), Colace, MOM (PRN ) Pertinent Labs 09/17: LDL 102, A1c 5.4 % 09/12: Hgb/Hct 12.2/35.7, Ca 8. 1, BUN/Cr 24/1.11, ALk Phos 142, T Protein 5.6, Alb 3.0 Nutritional Hx/Data Height 1.73 m Height (Calculated Centimeters) 172.7 Current Weight (lbs) 61.235 kg Weight (Calculated Kilograms) 61.2 Weight (Calculated Grams) 84737.0 [place] Body Weight 154 LB (70 kg) % [place] Body Weight 88 Body Mass Index (BMI) 20.5 Weight Status Approriate GI Symptoms GI Symptoms None Last BM 09/21 x1 Skin Integrity/Comment: Skin: WNL, Intact Wesley: 15 Current %PO Good (75-100%) Estimated Nutritional Goals BEE in Kcals: Using Current wt Calories/Kcals/Kg 28-30 Kcals Calculated 8424-6668 Protein: Using Current wt Protein g/k.75-0.8 Protein Calculated 46-50 Fluid: ml 4689-9373 ml (28-30 ml/kg) Nutritional Problem 1. Problem Problem Altered nutrition related labs Etiology r/t renal dysfunction Signs/Symptoms: aeb (09/12) BUN/Cr 24/1.11, ALk Phos 142, T Protein 5.6, Alb 3.0. Malnutrition Related to Morbid Obesity Malnutrition related to morbid obesity No Intervention/Recommendation Comments Continue Renal, 2gmNa diet as tolerated. Expected Outcomes/Goals Expected Outcomes/Goals 1. PO intake to continue to meet >75% of estimated nutritional needs. 2. Monitor PO intake, wt, nutrition related labs to trend WNL, and skin integrity. 3. F/U as low risk in 7-10 days, 09/29-10/02
--- NOTE | 2019-10-03 19:00 | Progress Notes ---
DATE: 10/03/2019 SUBJECTIVE: Chart was reviewed and the patient interviewed. Also discussed the patient's condition with the staff and reviewed records and labs. The patient continued to be confused and is still easily agitated. The patient is able to make his needs known but in irritable and angry mood. Also, is still forgetful and needs lots of redirections and lots of reassurance. Otherwise, the patient is compliant with taking his medications and no side effects of Seroquel that was increased __ and the Namenda 10 mg twice a day. Continue same dose and continue to follow up. JOB# [id number]
[2019-10-04] MEDS: Multivitamin w/ Minerals Tab PO SCH (08:26)
--- NOTE | 2019-10-04 10:44 | Internal Medicine Prog Note ---
Internal Medicine Subjective - Subjective Patient is:: asleep, verbal, arousable, in bed, agitated, confused Patient Complaints of:: other (Dementia.) Per staff patient has:: no adverse event, no episodes of fall, tolerating meds Internal Medicine Objective - Physical Exam Vitals and I&O: Vital Signs Temp 98.2 F 10/04/19 06:58 Pulse 65 10/04/19 06:58 Resp 19 10/04/19 06:58 BP 142/73 10/04/19 06:58 Pulse Ox 98 10/04/19 06:58 Intake & Output 10/03/19 10/04/19 10/04/19 18:59 06:59 18:59 Intake Total 1200 300 Output Total 1 Balance 1200 299 Intake: Oral 1200 300 Output: Urine/Stool Mix 1 Other: # Voids 1 # Bowel Movements 1 1 Active Medications: Current Medications Acetaminophen (Tylenol) 650 mg PO Q4H PRN PRN Reason: Mild Pain (Scale 1-3) Stop: 11/15/19 22:45 Acetaminophen (Tylenol) 650 mg PO Q4H PRN PRN Reason: TEMP ABOVE 100 Stop: 11/28/19 19:29 Al Hydrox/Mg Hydrox/Simethicone (Maalox) 30 ml PO Q4HR PRN PRN Reason: GI DISTRESS Stop: 11/28/19 19:29 Docusate Sodium (Colace) 100 mg PO BID JOSE Stop: 11/29/19 08:59 Last Admin: 10/04/19 08:26 Dose: 100 mg Hydroxyzine HCl (Atarax) 10 mg PO HS JOSE; Protocol Stop: 11/28/19 20:59 Last Admin: 10/03/19 21:04 Dose: 10 mg Lorazepam (Ativan) 0.5 mg PO Q4HR PRN; Protocol PRN Reason: anxiety Stop: 11/23/19 10:57 Magnesium Hydroxide (Milk Of Magnesia) 30 ml PO HS PRN PRN Reason: Constipation Stop: 11/15/19 22:58 Memantine (Namenda) 10 mg PO BID JOSE Stop: 11/29/19 08:59 Last Admin: 10/04/19 08:26 Dose: 10 mg Quetiapine Fumarate (Seroquel) 62.5 mg PO HS JOSE; Protocol Stop: 01/26/20 20:59 Last Admin: 10/03/19 21:04 Dose: 62.5 mg Zolpidem Tartrate (Ambien) 5 mg PO HS PRN PRN Reason: Insomnia Stop: 11/23/19 11:00 Last Admin: 10/02/19 20:46 Dose: 5 mg General: NAD, other (sleeping but arousable) HEENT: NC/AT, PERRLA Neck: Supple, No JVD Lungs: other (no acute respiratory distress) Cardiovascular: RRR Abdomen: soft, non-tender, non-distended Extremities: clear Neurological: alert Internal Medicine Assmt/Plan - Assessment Assessment: 515 Hold. Psychosis. Anxiety. Dementia moderate to severe. History of Degenerative joint disease. History of Acute renal failure. History of Osteoarthritis. - Plan Plan: Continue current treatment plan. Monitor Labs Continue current medications Continue to monitor VS Monitor Diet/Nutritional support. Psych management per Psychiatry. Pain Management. PT/OT prnSafety precaution, Fall precaution, frequent nursing round. Supportive care. Continue collaborating with consulting specialists, case management and nursing team Nutritional Asmnt/Malnutr-PDOC - Dietary Evaluation Malnutrition Findings (Please click <Entered> for more info): Nutritional Asmnt/Malnutrition Start: 09/22/19 15: 48 Text: Status: Complete Freq: Protocol: Document 09/22/19 15:48 CHITO (Rec: 09/22/19 15:51 CHITO [email or web address]) Nutritional Asmnt/Malnutrition Patient General Information Nutritional Screening Moderate Risk Diagnosis Psychosis Pertinent Medical Hx/Surgical Hx No reported medical Hx per H & P Report. Subjective Information Pt is an 84-year-old male admitted on 09/16 d/t 5150 hold for grave disability. Admitted following medical clearance from [facility] for increased aggressive behavior, striking out, and agitation. Pt is eating an estimated 90% of meals Per Meal/Nutrition Activity Record. Dietary is currently providing an estimated 1860 kcals and 50 gm Pro, per Pt PO intake this is providing an estimated 1675 kcals and 45gm Pro to meet 93% kcal and 100% Pro needs- adequate. Anthropometrics HT: 58 WT: 135 LB (61.36 kg) BMI: 20.53 (Normal) GI/ Skin Integrity GI: WNL, Non-tender BM: 09/21 x1 I/O: 1300/Not Noted Skin: WNL, Intact Wesley: 15 Diet Order: Renal, 2gmNa Estimated Energy Needs: (Renal , CBW) 5258-4891 kcals (28-30 kcals/ kg) 46-50g Pro (0.75-0.8 g/kg) 0457-5472 ml (28-30 ml/kg) Current Diet Order/ Nutrition Support Renal, 2gmNa Pertinent Medications Maalox (PRN), Colace, MOM (PRN ) Pertinent Labs 09/17: LDL 102, A1c 5.4 % 09/12: Hgb/Hct 12.2/35.7, Ca 8. 1, BUN/Cr 24/1.11, ALk Phos 142, T Protein 5.6, Alb 3.0 Nutritional Hx/Data Height 5 ft 8 in Height (Calculated Centimeters) 172.7 Current Weight (lbs) 135 lb Weight (Calculated Kilograms) 61.2 Weight (Calculated Grams) 04451.0 [place] Body Weight 154 LB (70 kg) % [place] Body Weight 88 Body Mass Index (BMI) 20.5 Weight Status Approriate GI Symptoms GI Symptoms None Last BM 09/21 x1 Skin Integrity/Comment: Skin: WNL, Intact Wesley: 15 Current %PO Good (75-100%) Estimated Nutritional Goals BEE in Kcals: Using Current wt Calories/Kcals/Kg 28-30 Kcals Calculated 8639-0728 Protein: Using Current wt Protein g/k.75-0.8 Protein Calculated 46-50 Fluid: ml 2319-0872 ml (28-30 ml/kg) Nutritional Problem 1. Problem Problem Altered nutrition related labs Etiology r/t renal dysfunction Signs/Symptoms: aeb (09/12) BUN/Cr 24/1.11, ALk Phos 142, T Protein 5.6, Alb 3.0. Malnutrition Related to Morbid Obesity Malnutrition related to morbid obesity No Intervention/Recommendation Comments Continue Renal, 2gmNa diet as tolerated. Expected Outcomes/Goals Expected Outcomes/Goals 1. PO intake to continue to meet >75% of estimated nutritional needs. 2. Monitor PO intake, wt, nutrition related labs to trend WNL, and skin integrity. 3. F/U as low risk in 7-10 days, 09/29-10/02
--- NOTE | 2019-10-04 15:10 | Progress Notes ---
DATE: 10/04/2019 Case was discussed with staff of the patient, reviewed records. This is an 84-year-old male who was admitted on 09/16/2019 on a hold for gait disability. The patient was living in [place], transferred to [facility] because of confusion and forgetfulness and increasing aggressive behaviors, striking out behavior, aggression towards staff, short temper, severe mood swings with a history of dementia and psychosis. The patient continues to be confused, demented, easily agitated, and unable to make his needs known. Unable to make safe plan for self-care, unpredictable, impulsive. He is on Seroquel and Namenda. No side effects with the medication, no sedation, no nausea, no extrapyramidal symptoms. We will continue to have outpatient group therapy, milieu therapy, adjust medication as needed. JOB# [id number]
[2019-10-05] MEDS: Multivitamin w/ Minerals Tab PO SCH (09:56)
--- NOTE | 2019-10-05 12:29 | Internal Medicine Prog Note ---
Internal Medicine Subjective - Subjective Patient seen and examined:: with staff Patient is:: verbal, arousable, in bed, agitated, confused Patient Complaints of:: other (Dementia.) Per staff patient has:: no adverse event, no episodes of fall, tolerating meds, other (patient refuses to get out of bed) Internal Medicine Objective - Physical Exam Vitals and I&O: Vital Signs Temp 98.1 F 10/05/19 06:28 Pulse 68 10/05/19 06:28 Resp 18 10/05/19 06:28 BP 134/62 10/05/19 06:28 Pulse Ox 96 10/05/19 06:28 Intake & Output 10/04/19 10/05/19 10/05/19 18:59 06:59 18:59 Intake Total 700 240 Balance 700 240 Intake: Oral 700 240 Other: # Voids 3 2 # Bowel Movements 0 Active Medications: Current Medications Acetaminophen (Tylenol) 650 mg PO Q4H PRN PRN Reason: Mild Pain (Scale 1-3) Stop: 11/15/19 22:45 Acetaminophen (Tylenol) 650 mg PO Q4H PRN PRN Reason: TEMP ABOVE 100 Stop: 11/28/19 19:29 Al Hydrox/Mg Hydrox/Simethicone (Maalox) 30 ml PO Q4HR PRN PRN Reason: GI DISTRESS Stop: 11/28/19 19:29 Docusate Sodium (Colace) 100 mg PO BID JOSE Stop: 11/29/19 08:59 Last Admin: 10/05/19 09:56 Dose: 100 mg Hydroxyzine HCl (Atarax) 10 mg PO HS JOSE; Protocol Stop: 11/28/19 20:59 Last Admin: 10/04/19 21:39 Dose: 10 mg Lorazepam (Ativan) 0.5 mg PO Q4HR PRN; Protocol PRN Reason: anxiety Stop: 11/23/19 10:57 Magnesium Hydroxide (Milk Of Magnesia) 30 ml PO HS PRN PRN Reason: Constipation Stop: 11/15/19 22:58 Memantine (Namenda) 10 mg PO BID JOSE Stop: 11/29/19 08:59 Last Admin: 10/05/19 09:56 Dose: 10 mg Quetiapine Fumarate (Seroquel) 62.5 mg PO HS JOSE; Protocol Stop: 11/30/19 20:59 Last Admin: 10/04/19 21:40 Dose: 62.5 mg Zolpidem Tartrate (Ambien) 5 mg PO HS PRN PRN Reason: Insomnia Stop: 11/23/19 11:00 Last Admin: 10/04/19 21:39 Dose: 5 mg General: NAD, other (sleeping but arousable) HEENT: NC/AT, PERRLA Neck: Supple, No JVD Lungs: other (no acute respiratory distress) Cardiovascular: RRR Abdomen: soft, non-tender, non-distended Extremities: clear Neurological: alert Internal Medicine Assmt/Plan - Assessment Assessment: 5150 Hold. Psychosis. Anxiety. Dementia moderate to severe. History of Degenerative joint disease. History of Acute renal failure. History of Osteoarthritis. - Plan Plan: Continue current treatment plan. Monitor Labs Continue current medications Continue to monitor VS Monitor Diet/Nutritional support. Psych management per Psychiatry. Pain Management. PT/OT prnSafety precaution, Fall precaution, frequent nursing round. Supportive care. Continue collaborating with consulting specialists, case management and nursing team Nutritional Asmnt/Malnutr-PDOC - Dietary Evaluation Malnutrition Findings (Please click <Entered> for more info): Nutritional Asmnt/Malnutrition Start: 09/22/19 15: 48 Text: Status: Complete Freq: Protocol: Document 09/22/19 15:48 CHITO (Rec: 09/22/19 15:51 CHITO [email or web address]) Nutritional Asmnt/Malnutrition Patient General Information Nutritional Screening Moderate Risk Diagnosis Psychosis Pertinent Medical Hx/Surgical Hx No reported medical Hx per H & P Report. Subjective Information Pt is an 84-year-old male admitted on 09/16 d/t 5150 hold for grave disability. Admitted following medical clearance from [facility] for increased aggressive behavior, striking out, and agitation. Pt is eating an estimated 90% of meals Per Meal/Nutrition Activity Record. Dietary is currently providing an estimated 1860 kcals and 50 gm Pro, per Pt PO intake this is providing an estimated 1675 kcals and 45gm Pro to meet 93% kcal and 100% Pro needs- adequate. Anthropometrics HT: 58 WT: 135 LB (61.36 kg) BMI: 20.53 (Normal) GI/ Skin Integrity GI: WNL, Non-tender BM: 09/21 x1 I/O: 1300/Not Noted Skin: WNL, Intact Wesley: 15 Diet Order: Renal, 2gmNa Estimated Energy Needs: (Renal , CBW) 0210-7553 kcals (28-30 kcals/ kg) 46-50g Pro (0.75-0.8 g/kg) 0092-6974 ml (28-30 ml/kg) Current Diet Order/ Nutrition Support Renal, 2gmNa Pertinent Medications Maalox (PRN), Colace, MOM (PRN ) Pertinent Labs 09/17: LDL 102, A1c 5.4 % 09/12: Hgb/Hct 12.2/35.7, Ca 8. 1, BUN/Cr 24/1.11, ALk Phos 142, T Protein 5.6, Alb 3.0 Nutritional Hx/Data Height 5 ft 8 in Height (Calculated Centimeters) 172.7 Current Weight (lbs) 135 lb Weight (Calculated Kilograms) 61.2 Weight (Calculated Grams) 44297.0 [place] Body Weight 154 LB (70 kg) % [place] Body Weight 88 Body Mass Index (BMI) 20.5 Weight Status Approriate GI Symptoms GI Symptoms None Last BM 09/21 x1 Skin Integrity/Comment: Skin: WNL, Intact Wesley: 15 Current %PO Good (75-100%) Estimated Nutritional Goals BEE in Kcals: Using Current wt Calories/Kcals/Kg 28-30 Kcals Calculated 6949-2895 Protein: Using Current wt Protein g/k.75-0.8 Protein Calculated 46-50 Fluid: ml 4372-7575 ml (28-30 ml/kg) Nutritional Problem 1. Problem Problem Altered nutrition related labs Etiology r/t renal dysfunction Signs/Symptoms: aeb (09/12) BUN/Cr 24/1.11, ALk Phos 142, T Protein 5.6, Alb 3.0. Malnutrition Related to Morbid Obesity Malnutrition related to morbid obesity No Intervention/Recommendation Comments Continue Renal, 2gmNa diet as tolerated. Expected Outcomes/Goals Expected Outcomes/Goals 1. PO intake to continue to meet >75% of estimated nutritional needs. 2. Monitor PO intake, wt, nutrition related labs to trend WNL, and skin integrity. 3. F/U as low risk in 7-10 days, 09/29-10/02
--- NOTE | 2019-10-05 15:52 | Progress Notes ---
DATE: 10/05/2019 Case was discussed with staff of the patient, reviewed records. The patient continues to have poor insight, unpredictable, impulsive. Continues to be unable to make safe plan for self-care, irritable, easily short temper, severe mood swings, demented, confused, unable to participate in meaningful conversation or make safe plan for self-care. No side effects with the medication, no sedation, no nausea, or no extrapyramidal symptoms. We will continue outpatient group therapy, milieu therapy, and adjust medication as needed. JOB# [id number]
[2019-10-06] MEDS: Multivitamin w/ Minerals Tab PO SCH (08:51)
--- NOTE | 2019-10-06 10:34 | Internal Medicine Prog Note ---
Internal Medicine Subjective - Subjective Service Date: 10/06/19 Patient seen and examined:: with staff Patient is:: verbal, arousable, in bed, agitated, confused Patient Complaints of:: other (Dementia.) Per staff patient has:: no adverse event, no episodes of fall, tolerating meds, other (patient refuses to get out of bed) Internal Medicine Objective - Physical Exam Vitals and I&O: Vital Signs Temp 97.1 F 10/06/19 05:27 Pulse 85 10/06/19 05:27 Resp 20 10/06/19 05:27 BP 126/51 10/06/19 05:27 Pulse Ox 93 10/06/19 05:27 Intake & Output 10/05/19 10/06/19 10/06/19 18:59 06:59 18:59 Intake Total 800 120 Balance 800 120 Intake: Oral 800 120 Other: # Voids 4 3 # Bowel Movements 0 0 Active Medications: Current Medications Acetaminophen (Tylenol) 650 mg PO Q4H PRN PRN Reason: Mild Pain (Scale 1-3) Stop: 11/15/19 22:45 Acetaminophen (Tylenol) 650 mg PO Q4H PRN PRN Reason: TEMP ABOVE 100 Stop: 11/28/19 19:29 Al Hydrox/Mg Hydrox/Simethicone (Maalox) 30 ml PO Q4HR PRN PRN Reason: GI DISTRESS Stop: 11/28/19 19:29 Docusate Sodium (Colace) 100 mg PO BID JOSE Stop: 11/29/19 08:59 Last Admin: 10/06/19 08:51 Dose: 100 mg Hydroxyzine HCl (Atarax) 10 mg PO HS JOSE; Protocol Stop: 11/28/19 20:59 Last Admin: 10/05/19 21:45 Dose: 10 mg Lorazepam (Ativan) 0.5 mg PO Q4HR PRN; Protocol PRN Reason: anxiety Stop: 11/23/19 10:57 Magnesium Hydroxide (Milk Of Magnesia) 30 ml PO HS PRN PRN Reason: Constipation Stop: 11/15/19 22:58 Memantine (Namenda) 10 mg PO BID JOSE Stop: 11/29/19 08:59 Last Admin: 10/06/19 08:51 Dose: 10 mg Quetiapine Fumarate (Seroquel) 62.5 mg PO HS JOSE; Protocol Stop: 11/30/19 20:59 Last Admin: 10/05/19 21:45 Dose: 62.5 mg Zolpidem Tartrate (Ambien) 5 mg PO HS PRN PRN Reason: Insomnia Stop: 11/23/19 11:00 Last Admin: 10/04/19 21:39 Dose: 5 mg Physical Exam: 84 y/o male patient needs close monitoring, still has poor insight and is demented, very unpredictable. General: NAD, other (sleeping but arousable) HEENT: NC/AT, PERRLA Neck: Supple, No JVD Lungs: other (no acute respiratory distress) Cardiovascular: RRR Abdomen: soft, non-tender, non-distended Extremities: clear Neurological: alert Internal Medicine Assmt/Plan - Assessment Assessment: 5149 Hold. Psychosis. Anxiety. Dementia moderate to severe. History of Degenerative joint disease. History of Acute renal failure. History of Osteoarthritis. - Plan Plan: Continuation of care. Monitor vitals and labs. Monitor diet/nutritional support. Continue present meds as directed. Supportive care. Pain management. Psych management as per Psych. Continue current treatment plan as ordered. Nutritional Asmnt/Malnutr-PDOC - Dietary Evaluation Malnutrition Findings (Please click <Entered> for more info): Nutritional Asmnt/Malnutrition Start: 09/22/19 15: 48 Text: Status: Complete Freq: Protocol: Document 09/22/19 15:48 CHITO (Rec: 09/22/19 15:51 [email or web address]) Nutritional Asmnt/Malnutrition Patient General Information Nutritional Screening Moderate Risk Diagnosis Psychosis Pertinent Medical Hx/Surgical Hx No reported medical Hx per H & P Report. Subjective Information Pt is an 84-year-old male admitted on 09/16 d/t 5150 hold for grave disability. Admitted following medical clearance from [facility] for increased aggressive behavior, striking out, and agitation. Pt is eating an estimated 90% of meals Per Meal/Nutrition Activity Record. Dietary is currently providing an estimated 1860 kcals and 50 gm Pro, per Pt PO intake this is providing an estimated 1675 kcals and 45gm Pro to meet 93% kcal and 100% Pro needs- adequate. Anthropometrics HT: 58 WT: 135 LB (61.36 kg) BMI: 20.53 (Normal) GI/ Skin Integrity GI: WNL, Non-tender BM: 09/21 x1 I/O: 1300/Not Noted Skin: WNL, Intact Wesley: 15 Diet Order: Renal, 2gmNa Estimated Energy Needs: (Renal , CBW) 8699-2508 kcals (28-30 kcals/ kg) 46-50g Pro (0.75-0.8 g/kg) 4050-1581 ml (28-30 ml/kg) Current Diet Order/ Nutrition Support Renal, 2gmNa Pertinent Medications Maalox (PRN), Colace, MOM (PRN ) Pertinent Labs 09/17: LDL 102, A1c 5.4 % 09/12: Hgb/Hct 12.2/35.7, Ca 8. 1, BUN/Cr 24/1.11, ALk Phos 142, T Protein 5.6, Alb 3.0 Nutritional Hx/Data Height 1.73 m Height (Calculated Centimeters) 172.7 Current Weight (lbs) 61.235 kg Weight (Calculated Kilograms) 61.2 Weight (Calculated Grams) 78653.0 [place] Body Weight 154 LB (70 kg) % [place] Body Weight 88 Body Mass Index (BMI) 20.5 Weight Status Approriate GI Symptoms GI Symptoms None Last BM 09/21 x1 Skin Integrity/Comment: Skin: WNL, Intact Wesley: 15 Current %PO Good (75-100%) Estimated Nutritional Goals BEE in Kcals: Using Current wt Calories/Kcals/Kg 28-30 Kcals Calculated 7794-2327 Protein: Using Current wt Protein g/k.75-0.8 Protein Calculated 46-50 Fluid: ml 3586-2604 ml (28-30 ml/kg) Nutritional Problem 1. Problem Problem Altered nutrition related labs Etiology r/t renal dysfunction Signs/Symptoms: aeb (09/12) BUN/Cr 24/1.11, ALk Phos 142, T Protein 5.6, Alb 3.0. Malnutrition Related to Morbid Obesity Malnutrition related to morbid obesity No Intervention/Recommendation Comments Continue Renal, 2gmNa diet as tolerated. Expected Outcomes/Goals Expected Outcomes/Goals 1. PO intake to continue to meet >75% of estimated nutritional needs. 2. Monitor PO intake, wt, nutrition related labs to trend WNL, and skin integrity. 3. F/U as low risk in 7-10 days, 09/29-10/02
--- NOTE | 2019-10-06 21:25 | Progress Notes ---
DATE: SUBJECTIVE: Chart reviewed and the patient interviewed. Also, discussed the patient's condition with the staff and reviewed records and labs. The patient is still confused and forgetful and needs lots of redirections. The patient also is still having mood swings, but decreased agitation and decreased behavioral problems and the patient seems to be quieter than before. Also, is trying to interact more with others. The patient also denies any side effects of medications. ASSESSMENT: The patient is still anxious and depressed, but no major behavioral problems. TREATMENT PLAN: Continue to monitor the patient's behavior and condition closely. Also, continue adjusting psychotropic medications and working on discharge plans. JOB# [id number]
[2019-10-07] MEDS: Multivitamin w/ Minerals Tab PO SCH (09:10)
--- NOTE | 2019-10-07 12:41 | Internal Medicine Prog Note ---
Internal Medicine Subjective - Subjective Service Date: 10/07/19 Patient seen and examined:: with staff Patient is:: verbal, arousable, agitated, confused Patient Complaints of:: other (Dementia.) Per staff patient has:: no adverse event, no episodes of fall, tolerating meds, other (patient refuses to get out of bed) Internal Medicine Objective - Physical Exam Vitals and I&O: Vital Signs Temp 97.8 F 10/07/19 05:58 Pulse 81 10/07/19 05:58 Resp 20 10/07/19 05:58 BP 153/83 10/07/19 05:58 Pulse Ox 95 10/07/19 05:58 Intake & Output 10/06/19 10/07/19 10/07/19 18:59 06:59 18:59 Intake Total 700 120 Output Total 1 Balance 700 119 Intake: Oral 700 120 Output: Urine/Stool Mix 1 Other: # Voids 3 1 # Bowel Movements 1 Active Medications: Current Medications Acetaminophen (Tylenol) 650 mg PO Q4H PRN PRN Reason: Mild Pain (Scale 1-3) Stop: 11/15/19 22:45 Acetaminophen (Tylenol) 650 mg PO Q4H PRN PRN Reason: TEMP ABOVE 100 Stop: 11/28/19 19:29 Al Hydrox/Mg Hydrox/Simethicone (Maalox) 30 ml PO Q4HR PRN PRN Reason: GI DISTRESS Stop: 11/28/19 19:29 Docusate Sodium (Colace) 100 mg PO BID JOSE Stop: 11/29/19 08:59 Last Admin: 10/07/19 09:10 Dose: 100 mg Hydroxyzine HCl (Atarax) 10 mg PO HS JOSE; Protocol Stop: 11/28/19 20:59 Last Admin: 10/06/19 21:54 Dose: 10 mg Lorazepam (Ativan) 0.5 mg PO Q4HR PRN; Protocol PRN Reason: anxiety Stop: 11/23/19 10:57 Magnesium Hydroxide (Milk Of Magnesia) 30 ml PO HS PRN PRN Reason: Constipation Stop: 11/15/19 22:58 Memantine (Namenda) 10 mg PO BID JOSE Stop: 11/29/19 08:59 Last Admin: 10/07/19 09:10 Dose: 10 mg Quetiapine Fumarate (Seroquel) 62.5 mg PO HS JOSE; Protocol Stop: 11/30/19 20:59 Last Admin: 10/06/19 21:54 Dose: 62.5 mg Zolpidem Tartrate (Ambien) 5 mg PO HS PRN PRN Reason: Insomnia Stop: 11/23/19 11:00 Last Admin: 10/04/19 21:39 Dose: 5 mg Physical Exam: 84 y/o male patient needs close monitoring, still anxious and very depressed, less aggravated and agitated. General: demented, NAD, other (sleeping but arousable) HEENT: NC/AT, PERRLA Neck: Supple, No JVD Lungs: other (no acute respiratory distress) Cardiovascular: RRR Abdomen: soft, non-tender, non-distended Extremities: clear Neurological: alert Internal Medicine Assmt/Plan - Assessment Assessment: Depressed mood. 5150 Hold. Psychosis. Anxiety. Dementia moderate to severe. History of Degenerative joint disease. History of Acute renal failure. History of Osteoarthritis. - Plan Plan: Continuation of care. Monitor vitals and labs. Monitor diet/nutritional support. Continue present meds as directed. Supportive care. Pain management. Psych management as per Psych. Continue current treatment plan as ordered. Nutritional Asmnt/Malnutr-PDOC - Dietary Evaluation Malnutrition Findings (Please click <Entered> for more info): Nutritional Asmnt/Malnutrition Start: 09/22/19 15: 48 Text: Status: Complete Freq: Protocol: Document 09/22/19 15:48 CHITO (Rec: 09/22/19 15:51 [email or web address] [email or web address]) Nutritional Asmnt/Malnutrition Patient General Information Nutritional Screening Moderate Risk Diagnosis Psychosis Pertinent Medical Hx/Surgical Hx No reported medical Hx per H & P Report. Subjective Information Pt is an 84-year-old male admitted on 09/16 d/t 5150 hold for grave disability. Admitted following medical clearance from [facility] for increased aggressive behavior, striking out, and agitation. Pt is eating an estimated 90% of meals Per Meal/Nutrition Activity Record. Dietary is currently providing an estimated 1860 kcals and 50 gm Pro, per Pt PO intake this is providing an estimated 1675 kcals and 45gm Pro to meet 93% kcal and 100% Pro needs- adequate. Anthropometrics HT: 58 WT: 135 LB (61.36 kg) BMI: 20.53 (Normal) GI/ Skin Integrity GI: WNL, Non-tender BM: 09/21 x1 I/O: 1300/Not Noted Skin: WNL, Intact Wesley: 15 Diet Order: Renal, 2gmNa Estimated Energy Needs: (Renal , CBW) 3791-1442 kcals (28-30 kcals/ kg) 46-50g Pro (0.75-0.8 g/kg) 1493-9071 ml (28-30 ml/kg) Current Diet Order/ Nutrition Support Renal, 2gmNa Pertinent Medications Maalox (PRN), Colace, MOM (PRN ) Pertinent Labs 09/17: LDL 102, A1c 5.4 % 09/12: Hgb/Hct 12.2/35.7, Ca 8. 1, BUN/Cr 24/1.11, ALk Phos 142, T Protein 5.6, Alb 3.0 Nutritional Hx/Data Height 1.73 m Height (Calculated Centimeters) 172.7 Current Weight (lbs) 61.235 kg Weight (Calculated Kilograms) 61.2 Weight (Calculated Grams) 91816.0 [place] Body Weight 154 LB (70 kg) % [place] Body Weight 88 Body Mass Index (BMI) 20.5 Weight Status Approriate GI Symptoms GI Symptoms None Last BM 09/21 x1 Skin Integrity/Comment: Skin: WNL, Intact Wesley: 15 Current %PO Good (75-100%) Estimated Nutritional Goals BEE in Kcals: Using Current wt Calories/Kcals/Kg 28-30 Kcals Calculated 1184-0199 Protein: Using Current wt Protein g/k.75-0.8 Protein Calculated 46-50 Fluid: ml 3585-1862 ml (28-30 ml/kg) Nutritional Problem 1. Problem Problem Altered nutrition related labs Etiology r/t renal dysfunction Signs/Symptoms: aeb (09/12) BUN/Cr 24/1.11, ALk Phos 142, T Protein 5.6, Alb 3.0. Malnutrition Related to Morbid Obesity Malnutrition related to morbid obesity No Intervention/Recommendation Comments Continue Renal, 2gmNa diet as tolerated. Expected Outcomes/Goals Expected Outcomes/Goals 1. PO intake to continue to meet >75% of estimated nutritional needs. 2. Monitor PO intake, wt, nutrition related labs to trend WNL, and skin integrity. 3. F/U as low risk in 7-10 days, 09/29-10/02
--- NOTE | 2019-10-07 22:22 | Discharge Summary ---
DATE OF DISCHARGE: 10/07/2019 AGE: 84. SEX: Male. PHYSICIAN: Dr. Gillespie. FINAL DIAGNOSIS AND PRIMARY DIAGNOSIS: Unspecified psychosis. SECONDARY DIAGNOSIS: Dementia, moderate to severe, with psychotic features. REASON FOR HOSPITALIZATION: The patient was admitted to the hospital from [facility] because of increased agitation and irritability as well as because of confusion and forgetfulness and inability to follow direction and also aggressive behavior. HOSPITAL COURSE: The patient continued to be in an irritable and angry mood. The patient was medically cleared in [facility] and then transferred back. The patient still has episodes of agitation and irritability and needs close monitoring and redirections. Gradually, the patient's affect was brighter and the patient was easier to redirect him and the patient returned to the [facility]. Physical exam of the patient showed that the patient has moderate malnutrition as well as degenerative joint disease and acute renal failure and osteoarthritis. The patient was medically cleared in [facility]. The patient had no major medical problems while in the hospital. AFTER DISCHARGE PLANS: The patient discharged from the hospital to [facility] with plans to follow there by the facility psychiatrist. The patient also is to continue current treatment and medications. EXPECTED OUTCOME AFTER DISCHARGE: Fair if the patient continue his outpatient treatment with the psychiatrist in the facility and follow up with treatment plans and work on his poor impulse control. JOB# [id number]
== END 2019-10-07 19:00 | DRG 885 ==
LOC: GERO 22:16
PROVIDERS: ADMIT Psychiatry & Neurology Psychiatry; ATTEND Psychiatry & Neurology Psychiatry
DX: F29 Unspecified psychosis not due to a substance or known physiological condition (principal); F03.91 Unspecified dementia, unspecified severity, with behavioral disturbance; E44.0 Moderate protein-calorie malnutrition; F41.9 Anxiety disorder, unspecified; M19.90 Unspecified osteoarthritis, unspecified site; Z68.20 Body mass index [BMI] 20.0-20.9, adult
CPT/HCPCS: 83036-90; G0410; Z7610